=== PATIENT | male | born 1945 | race Caucasian/White ===

== ENCOUNTER 2019-05-18 02:05 | Inpatient (IN) | payer OTHER, MEDICARE ==
[2019-05-18] MEDS ORDERED: NALOXONE 0.4 MG/ML 1 ML VIAL IV PRN (02:25)
[2019-05-18] MEDS ORDERED: ACETAMINOPHEN TAB 325 MG TAB PO PRN (02:25)
--- NOTE | 2019-05-18 02:36 | ED ---
General Adult HPI - General Stated complaint: Cellulitis Time Seen by Provider: 05/18/19 02:10 Source: patient, old records reviewed - History of Present Illness Initial comments: This patient is a 73-year-old man coming here as a transfer from the [facility]. The patient was transferred here as his brother lives nearby and requested transfer to this facility. The patient lives alone in an apartment and had his brother taken to the [facility] today for a number of complaints. He was seen and found to have ulcerations to the bilateral buttocks, with some cellulitis and possible abscess. He was started on treatment at the other facility and as there were no beds she was transferred here. The patient states that he is also having problems with the toenails of both feet as they have not been cut in quite a long period of time. Patient not aware of having fevers. No chest pain or dyspnea. Review of systems reveals that he does get lightheaded with standing. -: unknown Location: buttocks Radiation: non-radiation Consistency: constant Improves with: none Worsens with: none Treatments Prior to Arrival: other (Antibiotic) Review of Systems ROS Statement: Those systems with pertinent positive or pertinent negative responses have been documented in the HPI. ROS Other: All systems not noted in ROS Statement are negative. Constitutional: Reports: weakness (Generalized). Denies: fever Eyes: Denies: vision change ENT: Denies: congestion Respiratory: Denies: cough, dyspnea Cardiovascular: Denies: chest pain, palpitations, edema, syncope Gastrointestinal: Denies: abdominal pain, vomiting, diarrhea Genitourinary: Denies: dysuria Musculoskeletal: Denies: back pain Skin: Reports: as per HPI, lesions Neurological: Denies: headache, weakness, numbness General Exam General appearance: alert, in no apparent distress, cachectic Head exam: Present: atraumatic, normocephalic Eye exam: Present: normal appearance. Absent: scleral icterus, conjunctival injection Neck exam: Present: normal inspection, full ROM Respiratory exam: Present: normal lung sounds bilaterally. Absent: respiratory distress, wheezes, rales, rhonchi, stridor Cardiovascular Exam: Present: regular rate, normal rhythm, normal heart sounds. Absent: systolic murmur, diastolic murmur, rubs, gallop GI/Abdominal exam: Present: soft. Absent: tenderness, guarding, rebound Back exam: Absent: CVA tenderness (R), CVA tenderness (L) Neurological exam: Present: alert. Absent: motor sensory deficit Skin exam: Present: warm, dry, erythema (Patient has erythema and warmth to the bilateral buttocks, somewhat over the trochanter of each hip.) Course Vital Signs 05/18/19 02:25 Temperature 98.1 F Pulse Rate 77 Respiratory 20 Rate Blood Pressure 106/55 O2 Sat by Pulse 93 L Oximetry Medical Decision Making - Medical Decision Making Patient is 73-year-old man with multiple complaints, being in minute to start antibiotics for cellulitis, and then he may be requiring placement to long-term care facility for resolution of his social issues. Shouldn't had been started on Zosyn and vancomycin at the other facility and is be continued pending knees as a results of the cultures there or on seeing progress. Disposition Clinical Impression: Cellulitis and abscess of buttock Disposition: ADMITTED IP TO THIS HOSP Condition: Fair Is patient prescribed a controlled substance at d/c from ED?: No Referrals: None,Stated [Primary Care Provider] - 1-2 days
[2019-05-18] MEDS ORDERED: VANCOMYCIN IV PER PHARMACY 1 EACH MISC MISCELLANE PRN (02:41)
[2019-05-18] MEDS: SODIUM CHLORIDE 0.9% 1,000 ML IV SCH (02:55)
[2019-05-18] MEDS: PIPERACILLIN-TAZOBACTAM 3.375 GM in SODIUM CHLORIDE 0.9% 100 ML IVPB SCH ×3 (02:57→21:03)
[2019-05-18 03:14] LABS: Anisocytosis Slight; Basophils # (A) 0.2 k/uL (0-0.2); Basophils % (A) 1 %; Eosinophils # (A) 0.3 k/uL (0-0.7); Eosinophils % (A) 2 %; HCT 31.4 % (39.0-53.0); HGB 9.8 gm/dL (13.0-17.5); Hypochromasia Moderate; Lymphocytes # (A) 2.2 k/uL (1.0-4.8); Lymphocytes % (A) 19 %; MCH 24.3 pg (25.0-35.0); MCHC 31.1 g/dL (31.0-37.0); Mean Platelet Volume 7.4; Microcytosis Slight; Monocytes # (A) 0.5 k/uL (0-1.0); Monocytes % (A) 5 %; Neutrophils # (A) 8.7 k/uL (1.3-7.7); Neutrophils % (A) 72 %; Platelet Count 360 k/uL (150-450); RBC 4.03 m/uL (4.30-5.90); RDW 16.1 % (11.5-15.5); WBC 12.1 k/uL (3.8-10.6)
[2019-05-18 03:16] LABS: African American GFR (CKD) >90 (>60 ml/min/1.73 sqM); Anion Gap 4 mmol/L; Blood Urea Nitrogen 11 mg/dL (9-20); Carbon Dioxide 24 mmol/L (22-30); Chloride 106 mmol/L (98-107); Glucose 96 mg/dL (74-99); Non-African American GFR(CKD) >90 (>60 ml/min/1.73 sqM); Potassium 4.5 mmol/L (3.5-5.1); Sodium 134 mmol/L (137-145)
[2019-05-18] MEDS ORDERED: VANCOMYCIN 1,250 MG in SODIUM CHLORIDE 0.9% 250 ML IVPB ONE (04:00)
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
[2019-05-18] MEDS: VANCOMYCIN 1,250 MG in SODIUM CHLORIDE 0.9% 250 ML IVPB SCH (14:57)
--- NOTE | 2019-05-18 15:43 | CT ---
EXAMINATION TYPE: CT pelvis w con DATE OF EXAM: 05/18/2019 COMPARISON: Plain film 05/17/2019 from outside institution HISTORY: Bilateral buttocks pain. CT DLP: 403.9 mGycm Automated exposure control for dose reduction was used. TECHNIQUE: Helical acquisition of images from the lung bases through the pelvis have been completed. CONTRAST: Performed without Oral Contrast and with IV Contrast, patient injected with 100ml mL of Isovue 300. FINDINGS: The scan at the level of the gluteal regions is abnormally thickened, there is subcutaneous fat increased attenuation, at the level of the gluteus musculature on the left there is a low-attenu ation focus which is multilocular and extends from the level the skin to the posterior aspect of the proximal left lower extremity measuring at least 14 cm in size by 2.7 x 1.5 cm as greatest 4 cm AP di mension more distally along the proximal femur just deep to the skin. LUNG BASES: No significant abnormality is appreciated. AORTA: No significant abnormality is appreciated. LIVER/GB: Only partially visualized, gallbladder is contracted PANCREAS: Are showing visualized SPLEEN: Not included ADRENALS: Not included. KIDNEYS: Left kidney shows an exophytic cortical cyst measuring 3.2 cm posteriorly, the entire kidney s are not included on exam. Some additional lower pole subcentimeter low dense foci are indeterminate and left kidney REPRODUCTIVE ORGANS: Prostate is enlarged and shows associated calcifications. There is mass effect o n the inferior aspect of the urinary bladder. BOWEL: There are fluid-filled loops of small and large bowel present FREE AIR: No Free Air visible. ASCITES: None visible. PELVIC ADENOPATHY: None visualized. RETROPERITONEAL ADENOPATHY: No Retroperitoneal Adenopathy visible. URINARY BLADDER: Bladder wall thickening may be due to chronic outlet obstruction OSSEOUS STRUCTURES: No significant abnormality is seen. IMPRESSION: SOFT TISSUE ABSCESS, CELLULITIS DESCRIBED. ADDITIONAL FINDINGS ABOVE.
--- NOTE | 2019-05-18 15:53 | HP ---
HISTORY AND PHYSICAL DATE OF SERVICE: 05/18/2019 CHIEF COMPLAINT: Bilateral leg cellulitis and gluteal cellulitis. HISTORY OF PRESENT ILLNESS: This 73-year-old gentleman with a past medical history of multiple medical problems, including history of DJD, history of nicotine dependence, being followed by [facility] in the outpatient setting, apparently presented to [facility]. The patient is living in the [place] area. The patient had his own apartment, but apparently the apartment is in a disordered state at this time, and the patient was transferred from [facility] to [facility] for further evaluation because they do not have any bedside over there. The patient is complaining of bilateral gluteal wounds with some discharge as well as bilateral leg wounds and significant deformities of the nails, also. There is no history of any fever, rigor or chills. No history of headache, loss of consciousness, seizures. PAST MEDICAL HISTORY: DJD, history of nicotine dependence. MEDICATIONS: None. ALLERGIES: NONE. FAMILY HISTORY: History of cancer in the family. SOCIAL HISTORY: History of smoking. REVIEW OF SYSTEMS: ENT: Diminished hearing. Diminished vision. CARDIOVASCULAR SYSTEM: No angina, palpitations. RESPIRATORY SYSTEM: No cough, hemoptysis. GI: No nausea, vomiting. : No dysuria or retention. NERVOUS SYSTEM: As mentioned earlier. ALLERGY/IMMUNOLOGY: No asthma, hayfever. MUSCULOSKELETAL: As mentioned earlier. HEMATOLOGY/ONCOLOGY: No history of anemia. ENDOCRINE: No history of diabetes, hypothyroidism. CONSTITUTIONAL: As mentioned earlier. DERMATOLOGY: Negative. RHEUMATOLOGY: Negative. PSYCHIATRY: As mentioned earlier. PHYSICAL EXAMINATION: Patient alert and oriented x3. Pulse 76, blood pressure 136/64, respiration 18, temperature 97.8, pulse ox 97% on room air. HEENT: Conjunctivae normal. NECK: No jugular venous distention. CARDIOVASCULAR SYSTEM: S1, S2 muffled. RESPIRATORY SYSTEM: Breath sounds diminished at the bases. No rhonchi. No crackles. ABDOMEN: Soft, non-tender. No mass palpable. LEGS: No edema. No swelling. Otherwise, some erythema and bilateral leg cellulitis. Significant deformities in the nails also present. EXAMINATION OF THE GLUTEAL REGION: Bilateral skin cellulitis and minimal ulcerations. Discharge also present. NERVOUS SYSTEM: Higher functions as mentioned earlier. Moves all 4 limbs. No focal motor or sensory deficit. LYMPHATICS: No lymph node palpable in neck, axillae or groin. JOINTS: No active deforming arthropathy. SKIN: As mentioned earlier. LABS: WBC 12.2, hemoglobin 9.8, MCV 78, sodium 134. ASSESSMENT: 1. Bilateral gluteal cellulitis with failure of outpatient treatment. 2. Bilateral leg cellulitis. 3. Mild to moderate protein-calorie malnutrition. 4. Increased white count. 5. Anemia, microcytic, of undetermined etiology; possibly nutritional. 6. Hyponatremia. 7. History of nicotine dependence. 8. History of degenerative joint disease. RECOMMENDATIONS AND DISCUSSION: In this 73-year-old gentleman who presented with multiple complex medical issues, we will monitor the patient closely, continue the current medications, continue with symptomatic treatment. Will initiate broad-spectrum IV antibiotics and add antifungals. Infectious disease evaluation. PT, OT evaluation, possible ECF rehab. Otherwise, resume the home medications. DVT prophylaxis. Proton pump inhibitors. See orders for further details. I would also recommend a social insurance specialist consultation because of the issues with the home situation. The prognosis is guarded. Further recommendations to follow. A copy of this dictation is being forwarded to Dr. Jc, who [facility]. MMODL / IJN: [id number] /
--- NOTE | 2019-05-18 17:53 | P.CON ---
Consult Note - . Consult date: 05/18/19 Assessment/Plan:: This consult was performed per the request of Dr. Tiago Paredes elongated thick deformed nails. This patient is a 73-year-old male here as a transfer from the [facility]. The patient was transferred here as his brother lives nearby and requested transfer to this facility. The patient lives alone in an apartment and has had at his brother take him to the [facility] number of complaints. He was seen and found to have an ulceration to the bilateral buttocks area cellulitis and possible abscess. He was started on treatment at the other facility. The patient also states that he is having problems with the toenails of both feet and they've not been cut in quite a long period of time the patient is not aware of any fevers or chest pains or dyspnea U of systems revealed that he does get lightheaded with standing Review of systems systems with pertinent positive for pertinent negative responses have been documented in the HPI Podiatric examination revealed thick deformed elongated dystrophic nails of both feet been years since some of the nails have been trimmed. There is increased thickness dystrophy discoloration and subungual debris consistent with onychomycosis involving the digits one through 5 bilaterally refill is less than 3 seconds to all digits of both feet and patient had palpable pedal pulses are +1 over 4 with regard to the dorsalis pedis and the posterior tibial arteries of both feet 9 range of motion ankle subtalar midtarsal metatarsal phalangeal joints are free and unrestricted line Babinski and clonus signs were negative this date Impression 1. ulcerations bilateral buttocks alveolitis and possible abscess 2. Onychomycosis with extremely neglected nails 1 through 5 bilaterally Plan 1 I reduce patient's nails manuelly area and the patient climbed to me from en ding the nails down thank you for considering me in the care of your patients
[2019-05-19] MEDS: AMPICILLIN-SULBACTAM 3 GM in SODIUM CHLORIDE 0.9% 100 ML IVPB SCH ×4 (02:10→19:51)
[2019-05-19] MEDS: SODIUM CHLORIDE 0.9% 1,000 ML IV SCH (05:41)
[2019-05-19] MEDS: VANCOMYCIN 1,250 MG in SODIUM CHLORIDE 0.9% 250 ML IVPB SCH ×2 (05:41→20:33)
--- NOTE | 2019-05-19 07:29 | P.CONS ---
History of Present Illness - Reason for Consult Consult date: 05/18/19 gluteal cellulitis Requesting physician: Jovita Ordoñez - Chief Complaint bilateral glteal area pain and swelling x days - History of Present Illness Patient is a 73-year male who has been a transfer from [facility] for management of ulceration to bilateral gluteal area and concern for possible cellulitis patient was evaluated in the ER at their [facility] and there were no beds the patient was transferred to this facility patient ulceration to bilateral gluteal area for a couple of weeks now the patient say it started as he has been scratching the area has been dull aching pain intensity about 5-6 out of 10 and no radiation the patient did have some drainage which is bloodstained and foul-smelling for the patient denies high- grade fever did have some occasional chills on presentation the hospital the patient was afebrile his white count is mildly better at 4.1 patient did have a CT of the pelvis which did show some thickness of the gluteal area with subcutaneous fat increased attenuation and there was abscess about 2.7 x 1.4 cm local wound culture was ordered patient was started on vancomycin and Zosyn admitted to hospital infectious disease was consulted for further recommendation regarding antibiotic therapy. Review of Systems Positive point has been mentioned in HPI rest of the systems are negative Past Medical History History of Any Multi-Drug Resistant Organisms: None Reported Additional Past Surgical History / Comment(s): left wrist surgery, Past Anesthesia/Blood Transfusion Reactions: No Reported Reaction Past Psychological History: No Psychological Hx Reported Smoking Status: Current every day smoker - Past Family History Father Family Medical History: Cancer Mother Family Medical History: Cancer Medications and Allergies Home Medications Medication Instructions Recorded Confirmed Type No Known Home Medications 05/18/19 05/18/19 History Allergies Allergy/AdvReac Type Severity Reaction Status Date / Time No Known Allergies Allergy Verified 05/18/19 08:01 Physical Exam Vitals: Vital Signs Temp Pulse Pulse Resp BP BP Pulse Ox 05/18/19 21:00 98.7 F 71 15 93/52 90 L 05/18/19 11:53 97.8 F 76 19 137/64 97 05/18/19 07:02 98.1 F 79 17 97/42 90 L 05/18/19 04:57 97.6 F 81 16 101/53 90 L 02/06/20 03:55 73 18 93/57 94 L 05/18/19 02:25 98.1 F 77 20 106/55 93 L Intake and Output 05/18/19 05/18/19 05/18/19 06:59 14:59 22:59 Other: Voiding Method Diaper Toilet Toilet Diaper Diaper # Voids 1 3 1 Weight 68.039 kg GENERAL DESCRIPTION: Elderly male lying in bed, no distress. No tachypnea or accessory muscle of respiration use. HEENT: Shows Pallor , no scleral icterus. Oral mucous membrane is dry. NECK: Trachea central, no thyromegaly. LUNGS: Unlabored breathing. Clear to auscultation anteriorly. No wheeze or crackle. HEART: S1, S2, regular rate and rhythm. ABDOMEN: Soft, no tenderness , guarding or rigidity, bilateral gluteal area did have superficial ulcerations the area is indurated and thickened with purulent drainage that was noticed EXTREMITIES: No edema of feet. SKIN: No rash, no masses palpable. NEUROLOGICAL: The patient is awake, alert, oriented x3, mood and affect normal. Results CBC & Chem 7: 05/18/19 02:13 05/18/19 02:13 Labs: Abnormal Lab Results - Last 24 Hours (Table) 05/18/19 05/18/19 Range/Units 02:13 02:13 WBC 12.1 H (3.8-10.6) k/uL RBC 4.03 L (4.30-5.90) m/uL Hgb 9.8 L (13.0-17.5) gm/dL Hct 31.4 L (39.0-53.0) % MCV 78.0 L (80.0-100.0) fL MCH 24.3 L (25.0-35.0) pg RDW 16.1 H (11.5-15.5) % Neutrophils # 8.7 H (1.3-7.7) k/uL Sodium 134 L (137-145) mmol/L Creatinine 0.64 L (0.66-1.25) mg/dL Calcium 8.0 L (8.4-10.2) mg/dL Microbiology - Last 24 Hours (Table) 05/18/19 05:30 Gram Stain - Preliminary Buttock Wound Culture - Preliminary 05/18/19 05:31 Gram Stain - Preliminary Buttock Wound Culture - Preliminary 05/18/19 05:30 Anaerobic Culture - Preliminary Buttock 05/18/19 05:31 Anaerobic Culture - Preliminary Buttock Assessment and Plan Assessment: 1-patient with bilateral gluteal cellulitis with concern for a small abscess on the CT more likely from gram-positive skin karen underlying gram-negative infection not entirely excluded. 2-significant fungal dermatitis of bilateral axillary area (1) Fungal dermatitis Current Visit: Yes Status: Acute Code(s): B36.9 - SUPERFICIAL MYCOSIS, UNSPECIFIED SNOMED Code(s): 06989294 (2) Cellulitis and abscess of buttock Current Visit: Yes Status: Acute Code(s): L02.31 - CUTANEOUS ABSCESS OF BUTTOCK; L03.317 - CELLULITIS OF BUTTOCK SNOMED Code(s): 031764990 Plan: 1-vancomycin pharmacy to dose her with a target trough of 15 while watching her kidney function and Vanco trough closely. 2-discontinue Zosyn and add Unasyn to cover for the gram-negative anaerobes and to decrease risk of nephrotoxicity 3-local care with dry Aquacel silver dressing change daily and as needed. 4-nystatin powder to bilateral axillary area twice a day We will follow on clinical condition and cultures to further adjust medication if needed Thank you for this consultation we will follow the patient along with you Time with Patient: Greater than 30
[2019-05-19] MEDS: FLUCONAZOLE 100 MG TAB PO SCH (08:17)
[2019-05-19] MEDS: NICOTINE 21MG/24HR PATCH TRANSDERM SCH (11:30)
--- NOTE | 2019-05-19 13:48 | CDI ---
Documentation Clarification Form Date: 05/19/2019 01:11:53 PM From: Ayala Wiley RN CCDS Admit Date: 05/18/2019 09:44:00 AM Patient Name: Santhosh Marcos Visit Number: [id number] Discharge Date: ATTENTION: The Clinical Documentation Specialists (CDI) and [facility] Coding Staff appreciate your assistance in clarifying documentation. Please respond to the clarification below the line at the bottom and electronically sign. The CDI & [facility] Coding staff will review the response and follow-up if needed. Please note: Queries are made part of the Legal Health Record. If you have any questions, please contact the author of this message via ITS. Dr. Jovita Ordoñez Thank you for documenting mild to moderate protein calorie malnutrition. However, there needs to be more specificity. History/Risk Factors: 73-year-old male presents to ED via EMS as a transfer from the [facility] with bilateral gluteal wounds with some discharge as well as bilateral leg wounds and significant deformities of the nails. Medical history DJD, History of nicotine dependence Clinical Indicators: Lab findings: Wbc 12.1; Hgb 9.8; Na 134; Cr 0.64; Calcium 8.0 Current BMI 05/19 20.6 Feeding Assessment in Nursing Notes 05/18 Meal Breakfast 100%, Diet tolerated Well, Self-feeding ability independent, Lunch 100%, Dinner 100% , HS Snack 100% No Nutritional consult ordered 05/19 Vital Signs: 05/18 106/55 77 98.1 20 93% ra Treatment: Regular Diet In your professional opinion, can you please clarify the malnutrition? * Mild Protein Calorie Malnutrition * Moderate Protein Calorie Malnutrition * Other, please specify * Unable to determine (Last Revision: July 2017) Mild Protein Calorie Malnutrition MTDD
[2019-05-19] MEDS ORDERED: IV FLUID CONTINUATION 1,000 ML IV ONE (16:10)
[2019-05-19] MEDS ORDERED: ONDANSETRON 4 MG/2 ML VIAL IVP ONE (16:46)
--- NOTE | 2019-05-19 17:06 | P.HPADDEND ---
H&P Addendum H&P Addendum Date: 05/19/19 Its risks of the procedure was described. Patient has deep subcutaneous buttock cellulitis requiring debridement of both Buttocks. Patient agreed FULL CODE STATUS
[2019-05-19] MEDS ORDERED: ONDANSETRON 4 MG/2 ML VIAL ONE (17:18)
[2019-05-19] MEDS ORDERED: LIDOCAINE 1% INJ 10MG/ML (20 ML MDV) ONE (17:18)
[2019-05-19] MEDS ORDERED: SUCCINYLCHOLINE CHLORIDE 100 MG/5 ML SYR IV ONE (17:18)
[2019-05-19] MEDS ORDERED: fentaNYL (PF) 50 MCG/ML 2 ML AMP ONE (17:18)
[2019-05-19] MEDS ORDERED: DEXAMETHASONE SOD PHOS (MDV) 100 MG/10 ML VIAL ONE (17:18)
[2019-05-19] MEDS ORDERED: PROPOFOL 10 MG/ML 20 ML VIAL IV ONE (17:18)
--- NOTE | 2019-05-19 18:07 | PN ---
PROGRESS NOTE DATE OF SERVICE: 05/19/2019 This 73 -year-old gentleman, admitted with bilateral leg ulcers and also gluteal ulcer, is being closely monitored at this time. Surgery is planning debridement today. The patient is on broad-spectrum IV antibiotics. Cultures are showing beta hemolytic streptococci grown from the wound culture. Past medical history reviewed. REVIEW OF SYSTEMS: CARDIOVASCULAR SYSTEM: No angina, palpitations. RESPIRATORY SYSTEM: As mentioned earlier. GI: As mentioned earlier. : No dysuria or retention. NERVOUS SYSTEM: No numbness, weakness. CURRENT MEDICATIONS: Reviewed. They include: 1. Tylenol p.r.n. 2. Unasyn 3 grams IV q.6. 3. Diflucan. 4. Narcan. 5. Habitrol 21 daily. 6. Vancomycin. PHYSICAL EXAMINATION: Patient alert and oriented x3. Pulse 63, blood pressure 152/81, respiration 14, temperature 97.5, pulse ox 98% on room air. HEENT: Conjunctivae normal. Oral mucosa moist. NECK: No jugular venous distention. No carotid bruit. No lymph node enlargement. CARDIOVASCULAR SYSTEM: S1, S2 muffled. RESPIRATORY SYSTEM: Breath sounds diminished at the bases. No rhonchi. No crackles. ABDOMEN: Soft, non-tender. LEGS: Bilateral leg cellulitis and gluteal area cellulitis also present. NERVOUS SYSTEM: No focal deficits. LABS: WBC 12.2, hemoglobin 9.8, sodium 135. ASSESSMENT: 1. Bilateral gluteal cellulitis with streptococci with failure of outpatient treatment with possible gluteal abscess, for incision and drainage. 2. Bilateral leg cellulitis. 3. Mild to moderate protein-calorie malnutrition. 4. Increased white count. 5. Anemia, microcytic, of undetermined etiology. Possibly nutritional. 6. Hyponatremia. 7. History of nicotine dependence. 8. History of degenerative joint disease. RECOMMENDATIONS AND DISCUSSION: In this 73-year-old gentleman who presented with multiple complex medical issues, we will monitor the patient closely, continue the current medications, continue with symptomatic treatment. Otherwise at this time continue the antibiotics. Repeat labs. Follow the cultures. We will continue to monitor. Guarded prognosis because of multiple complex medical issues. Further recommendations to follow. See orders for further details. MMODL / IJN: [id number] /
[2019-05-19] MEDS ORDERED: HYDROmorphone 0.5 MG/0.5 ML SYRINGE IVP PRN (18:08)
[2019-05-19] MEDS ORDERED: HYDROcodone/APAP 5-325MG 1 EACH TAB PO PRN (18:08)
[2019-05-19] MEDS ORDERED: ONDANSETRON 4 MG/2 ML VIAL IVP PRN (18:08)
--- NOTE | 2019-05-19 18:21 | P.OP ---
Date of Procedure: 05/19/19 Description of Procedure: SURGEON: CLARENCE VILLAGRAN MD AUTOMOTIVE PRODUCT ENGINEER: None. PREOPERATIVE DIAGNOSES: 1. Bilateral buttock abscess, complicated 2. Adult self neglect 3. Leukocytosis 4. Abnormal CT pelvis with complex subcutaneous abscess POSTOPERATIVE DIAGNOSES: 1. Bilateral buttock abscess, complicated 2. Adult self neglect 3. Leukocytosis 4. Abnormal CT pelvis with complex subcutaneous abscess 5. [id number] left buttock PROCEDURES PERFORMED: 1. Incision and drainage of complex subcutaneous abcess left buttock 5 x 6 cm 2. Mechanical debridement bilateral buttocks eczematous skin using scrub brush Anesthesia: GETA Estimated Blood Loss (ml): 10 Pathology: Aerobic and anerobic cultures left buttock Condition: stable COMPLICATIONS: None. Operative Findings: 1. Eczematous skin bilateral buttocks with multiple abscess pockets, left buttock drained 2. No active drainage along left femoral abscess per CT scan INDICATIONS: The patient is a 73-year-old male with generalized self neglect and hygiene who presents with complicated left buttock abscesses and abnormal CT of deep left thigh abscess. Benefits and risks of surgical intervention were described including recurrence, pain, need for further surgery. Informed consent was obtained. DESCRIPTION OR PROCEDURE: Patient was brought into the operating room. After general induction, he was positioned in prone position. The buttocks were prepped and draped in a standard sterile fashion with ChloraPrep. Timeout protocol was confirmed with the surgical team regarding the patient's name, procedure to be performed including preoperative medications. DVT prophylaxis was confirmed. Both wounds were measured along the buttocks had eczematous skin debrided mechanically with a scrub brush of 20 x 15 cm both buttocks. At the left buttock two draining points with abscess were found at the superior aspect and inferior aspect of the gluteus. Initial needle aspiration with 18- gauge needle was performed to identify any deep abscess pockets. A tunnel was found of the inferior left buttock explored with forceps of 4 cm. The tunnel was incised and drained using #15 blade. The superior buttock transverse incision of 3 cm was made into the subcutaneous tissue for drainage. No draining abscess pockets were found over the left femur. The skin was cleansed with Hibiclens and water. ABD was applied to the skin. At the end of the procedure, needle, sponge, and instrument count was verified correct by it telecom technician. The patient was transferred into the postanesthesia care unit in stable condition. S
[2019-05-19] MEDS ORDERED: SODIUM CHLORIDE 0.9% 1,000 ML IV ONE (19:09)
--- NOTE | 2019-05-19 22:50 | PN ---
PROGRESS NOTE DATE OF SERVICE: 05/19/2019. REASON FOR FOLLOWUP: Gluteal abscess and cellulitis. INTERVAL HISTORY: The patient is currently afebrile. The patient has been breathing comfortably. The patient denies having any chest pain, shortness of breath or cough. No nausea or vomiting. No abdominal pain. No diarrhea. PHYSICAL EXAMINATION: Blood pressure is 174/90 with a pulse of 82, temperature 96.6. He is 94% on room air. General description is an elderly male lying in bed in no distress. RESPIRATORY SYSTEM: Unlabored breathing. Clear to auscultation anteriorly. HEART: S1, S2. Regular rate and rhythm. ABDOMEN: Soft. No tenderness. LABS: Cultures currently pending. DIAGNOSTIC IMPRESSION AND PLAN: Patient with bilateral gluteal abscess and cellulitis. The patient is status post drainage of the left buttock abscess. The patient is currently covered with Unasyn and vancomycin; to continue while monitoring clinical course closely. MMODL / IJN: [id number] /
[2019-05-20] MEDS: AMPICILLIN-SULBACTAM 3 GM in SODIUM CHLORIDE 0.9% 100 ML IVPB SCH ×4 (02:28→21:11)
[2019-05-20] MEDS: SODIUM CHLORIDE 0.9% 1,000 ML IV SCH (02:31)
[2019-05-20 03:27] LABS: Anisocytosis Slight; Basophils # (A) 0.1 k/uL (0-0.2); Basophils % (A) 1 %; Eosinophils # (A) 0.2 k/uL (0-0.7); Eosinophils % (A) 2 %; HCT 30.5 % (39.0-53.0); HGB 9.6 gm/dL (13.0-17.5); Hypochromasia Slight; Lymphocytes # (A) 1.4 k/uL (1.0-4.8); Lymphocytes % (A) 14 %; MCH 24.4 pg (25.0-35.0); MCHC 31.4 g/dL (31.0-37.0); MCV 77.9 fL (80.0-100.0); Mean Platelet Volume 7.7; Microcytosis Slight; Monocytes # (A) 0.3 k/uL (0-1.0); Monocytes % (A) 3 %; Neutrophils # (A) 8.1 k/uL (1.3-7.7); Neutrophils % (A) 79 %; Platelet Count 288 k/uL (150-450); RBC 3.91 m/uL (4.30-5.90); RDW 16.5 % (11.5-15.5); WBC 10.2 k/uL (3.8-10.6)
[2019-05-20 04:01] LABS: African American GFR (CKD) >90 (>60 ml/min/1.73 sqM); Anion Gap 3 mmol/L; Blood Urea Nitrogen 10 mg/dL (9-20); Calcium 7.6 mg/dL (8.4-10.2); Carbon Dioxide 24 mmol/L (22-30); Chloride 107 mmol/L (98-107); Glucose 80 mg/dL (74-99); Non-African American GFR(CKD) >90 (>60 ml/min/1.73 sqM); Potassium 4.1 mmol/L (3.5-5.1); Sodium 134 mmol/L (137-145)
[2019-05-20] MEDS: VANCOMYCIN 1,250 MG in SODIUM CHLORIDE 0.9% 250 ML IVPB SCH (05:11)
[2019-05-20] MEDS: NICOTINE 21MG/24HR PATCH TRANSDERM SCH (07:12)
[2019-05-20] MEDS: FLUCONAZOLE 100 MG TAB PO SCH (07:16)
--- NOTE | 2019-05-20 11:41 | P.PN ---
Progress Note - Text Progress Note Date: 05/20/19 The patient is resting comfortably in his bed. He underwent incision and drainage of a buttock abscess yesterday from. Per nursing staff his wound is clean. Patient will continue local wound care. He'll follow-up with Dr. Boss next week.
--- NOTE | 2019-05-20 14:23 | PN ---
PROGRESS NOTE DATE OF SERVICE: 05/20/2019 REASON FOR FOLLOWUP: Bilateral gluteal wound and cellulitis. INTERVAL HISTORY: The patient is currently afebrile. Patient has been breathing comfortably. Denies having any chest pain or shortness of breath or cough. No nausea, no vomiting. No abdominal pain. No pain to the gluteal wound area. PHYSICAL EXAMINATION: Blood pressure 92/53 with a pulse of 74, temperature 97.5. He is 93% on room air. General description is an elderly male up in the chair in no distress. RESPIRATORY SYSTEM: Unlabored breathing, clear to auscultation anteriorly. HEART: S1, S2. Regular rate and rhythm. ABDOMEN: Soft, no tenderness. Wound site currently dressed up. LABS: Hemoglobin 9.6, white count 10.2, BUN of 10, creatinine 0.55. Initial culture with beta hemolytic Streptococcus F. OR cultures currently pending. DIAGNOSTIC IMPRESSION AND PLAN: Patient with bilateral gluteal wound and cellulitis. Cultured with beta hemolytic Streptococcus F. The patient is covered with Unasyn. Vancomycin discontinued. Local care to continue as ordered and continue supportive care. MMODL / IJN: [id number] /
[2019-05-20] MEDS: HEPARIN SODIUM,PORCINE 5,000 UNIT/ML 1 ML VIAL SQ SCH ×2 (15:56→21:11)
[2019-05-20] MEDS: FERROUS SULFATE 325 MG TAB PO SCH (15:56)
--- NOTE | 2019-05-20 17:44 | PN ---
PROGRESS NOTE DATE OF SERVICE: 05/20/2019 This 73-year-old gentleman who was admitted with bilateral gluteal cellulitis with beta hemolytic Streptococcus, had failure of outpatient treatment, also. The patient underwent incision and drainage of the complex subcutaneous abscess of the left buttock 5 to 6 cm and mechanical debridement by Dr. Estrada. No chest pain. No palpitations. No fever. PHYSICAL EXAMINATION: On exam, alert and oriented x3. Pulse 68, blood pressure 127/65, respiration 18, temperature 98.3 pulse ox 100% on room air. HEENT: Conjunctivae normal. NECK: No jugular venous distention. CARDIOVASCULAR: S1, S2 muffled. RESPIRATORY: Breath sounds diminished at the bases. No rhonchi. No crackles. ABDOMEN: Soft, nontender. LEGS: No edema, no swelling. NERVOUS SYSTEM: No focal deficits. LABS: WBC 10.2, hemoglobin 9.6, sodium 134. ASSESSMENT: 1. Bilateral gluteal cellulitis with wound with beta-hemolytic streptococci with failure of outpatient treatment, status post incision and drainage of the gluteal abscess. 2. Bilateral leg cellulitis. 3. Mild to moderate protein calorie malnutrition. 4. Increased WBC. 5. Anemia, microcytic undetermined etiology, probably nutritional. 6. Hyponatremia. 7. History of nicotine dependence. 8. History of degenerative joint disease. 9. Gait dysfunction. 10.FULL CODE. RECOMMENDATIONS AND DISCUSSION: In this 73-year-old gentleman who presented with multiple complex medical issues, will monitor the patient closely. Continue the current medications, continue symptomatic treatment. Will obtain the cultures and I would also recommend PT, OT evaluation and possible ECF rehab. Otherwise continue the antibiotics, it is a patient. I would also recommend iron supplementation also. Guarded prognosis. Further recommendations to follow. DVT prophylaxis. MMODL / IJN: [id number] / OSMAR
[2019-05-21] MEDS: SODIUM CHLORIDE 0.9% 1,000 ML IV SCH (03:13)
[2019-05-21] MEDS: AMPICILLIN-SULBACTAM 3 GM in SODIUM CHLORIDE 0.9% 100 ML IVPB SCH ×4 (03:13→21:12)
[2019-05-21] MEDS: NICOTINE 21MG/24HR PATCH TRANSDERM SCH (08:14)
[2019-05-21] MEDS: PANTOPRAZOLE 40 MG TABLET PO SCH (08:14)
[2019-05-21] MEDS: FLUCONAZOLE 100 MG TAB PO SCH (08:14)
[2019-05-21] MEDS: HEPARIN SODIUM,PORCINE 5,000 UNIT/ML 1 ML VIAL SQ SCH ×2 (08:14→21:12)
[2019-05-21 08:28] LABS: Anisocytosis Slight; Basophils # (A) 0.1 k/uL (0-0.2); Basophils % (A) 1 %; Eosinophils # (A) 0.3 k/uL (0-0.7); Eosinophils % (A) 3 %; HCT 33.5 % (39.0-53.0); HGB 10.3 gm/dL (13.0-17.5); Hypochromasia Moderate; Lymphocytes # (A) 1.8 k/uL (1.0-4.8); Lymphocytes % (A) 19 %; MCHC 30.6 g/dL (31.0-37.0); MCV 78.4 fL (80.0-100.0); Mean Platelet Volume 6.8; Monocytes # (A) 0.4 k/uL (0-1.0); Monocytes % (A) 4 %; Neutrophils # (A) 6.7 k/uL (1.3-7.7); Neutrophils % (A) 71 %; Platelet Count 338 k/uL (150-450); RBC 4.28 m/uL (4.30-5.90); RDW 16.2 % (11.5-15.5); WBC 9.4 k/uL (3.8-10.6)
[2019-05-21 08:37] LABS: African American GFR (CKD) >90 (>60 ml/min/1.73 sqM); Anion Gap 7 mmol/L; Blood Urea Nitrogen 10 mg/dL (9-20); Calcium 8.1 mg/dL (8.4-10.2); Carbon Dioxide 22 mmol/L (22-30); Chloride 107 mmol/L (98-107); Glucose 105 mg/dL (74-99); Non-African American GFR(CKD) >90 (>60 ml/min/1.73 sqM); Potassium 4.5 mmol/L (3.5-5.1); Sodium 136 mmol/L (137-145)
--- NOTE | 2019-05-21 10:58 | P.PN ---
Progress Note - Text Progress Note Date: 05/21/19 The patient remained stable. He is currently in his chair. He has no complaints. On exam his vital signs are stable. Abdomen soft. Status post debridement of buttock abscess. Patient be discharged home per medicine.
[2019-05-21] MEDS: FERROUS SULFATE 325 MG TAB PO SCH (13:17)
--- NOTE | 2019-05-21 22:34 | PN ---
PROGRESS NOTE DATE OF SERVICE: 05/21/2019 This 73-year-old gentleman was admitted with bilateral gluteal cellulitis and as well as possible beta-hemolytic Streptococcus and with failure of outpatient treatment has been admitted from [facility] because of lack of beds over there. The patient has IV antibiotics. No chest pain. No palpitations. Debridement was done by Dr. Estrada. EXAM: Alert and oriented x3. Pulse is 62, blood pressure 137/72, respiration 20, temperature 97.2, pulse ox 98% on room air. HEENT: Conjunctivae normal. NECK: No JVD. CARDIOVASCULAR: S1, S2 muffled. LUNGS: Diminished breath sounds at the bases. A few scattered rhonchi and crackles. ABDOMEN: Soft, nontender. Examination of the gluteal region: Ulcer present. NERVOUS SYSTEM: Diffusely weak. LAB STUDIES: WBC 9.2, hemoglobin 10.3, sodium 136. ASSESSMENT: 1. Bilateral gluteal cellulitis with wound abscess with beta-hemolytic streptococci with failure of outpatient treatment, status post incision and drainage of the gluteal abscess. 2. Bilateral leg cellulitis. 3. Mild to moderate protein calorie malnutrition. 4. Gait dysfunction. 5. Increased WBC. 6. Anemia, microcytic undetermined etiology, probably nutritional. 7. Hyponatremia. 8. History of nicotine dependence. 9. History of degenerative joint disease. 10.FULL CODE. RECOMMENDATIONS AND DISCUSSION: In this 73-year-old gentleman who presented with multiple complex medical issues, I would recommend to continue current medications, symptomatic treatment. Otherwise, I recommend continue to monitor, possible ECF rehab. Guarded prognosis. Further recommendations to follow. MMODL / IJN: [id number] /
--- NOTE | 2019-05-22 01:21 | PN ---
PROGRESS NOTE DATE OF SERVICE: 05/21/2019 REASON FOR FOLLOWUP: Left gluteal abscess and cellulitis. INTERVAL HISTORY: The patient is currently afebrile, has been breathing comfortably. The patient denies having any chest pain or shortness of breath or cough. No nausea, vomiting, abdominal pain. No diarrhea. PHYSICAL EXAMINATION: Blood pressure is 137/72 with a pulse of 52, temperature 97.8. He is 99% on room air. General description is an elderly male lying in bed in no distress. Respiratory system: Unlabored breathing, clear to auscultation anteriorly. Heart S1, S2. Regular rate and rhythm. Abdomen soft, no tenderness. Left total wound with surrounding redness has improved. No drainage. LABS: Hemoglobin 7.8, white count 9.4. BUN of 10, creatinine 0.63. DIAGNOSTIC IMPRESSION AND PLAN: Patient with left gluteal abscess status post drainage. The patient at this point to continue local care with Aquacel Silver packing and continue supportive care. MMODL / IJN: [id number] / MTDD
[2019-05-22] MEDS: AMPICILLIN-SULBACTAM 3 GM in SODIUM CHLORIDE 0.9% 100 ML IVPB SCH ×2 (01:33→08:16)
[2019-05-22] MEDS: SODIUM CHLORIDE 0.9% 1,000 ML IV SCH (02:25)
[2019-05-22] MEDS: HEPARIN SODIUM,PORCINE 5,000 UNIT/ML 1 ML VIAL SQ SCH ×2 (08:16→21:10)
[2019-05-22] MEDS: FERROUS SULFATE 325 MG TAB PO SCH (08:16)
[2019-05-22] MEDS: PANTOPRAZOLE 40 MG TABLET PO SCH (08:16)
[2019-05-22] MEDS: FLUCONAZOLE 100 MG TAB PO SCH (08:16)
[2019-05-22] MEDS: NICOTINE 21MG/24HR PATCH TRANSDERM SCH (08:16)
[2019-05-22 08:26] LABS: Anisocytosis Slight; Basophils # (A) 0.1 k/uL (0-0.2); Basophils % (A) 2 %; Eosinophils # (A) 0.4 k/uL (0-0.7); Eosinophils % (A) 4 %; HCT 34.4 % (39.0-53.0); HGB 10.6 gm/dL (13.0-17.5); Hypochromasia Slight; Lymphocytes # (A) 1.8 k/uL (1.0-4.8); Lymphocytes % (A) 19 %; MCH 24.1 pg (25.0-35.0); MCHC 30.7 g/dL (31.0-37.0); MCV 78.4 fL (80.0-100.0); Mean Platelet Volume 7.4; Microcytosis Slight; Monocytes # (A) 0.5 k/uL (0-1.0); Monocytes % (A) 5 %; Neutrophils # (A) 6.7 k/uL (1.3-7.7); Neutrophils % (A) 70 %; Platelet Count 340 k/uL (150-450); RBC 4.38 m/uL (4.30-5.90); RDW 16.7 % (11.5-15.5); WBC 9.6 k/uL (3.8-10.6)
[2019-05-22 08:49] LABS: African American GFR (CKD) >90 (>60 ml/min/1.73 sqM); Anion Gap 9 mmol/L; Blood Urea Nitrogen 12 mg/dL (9-20); Calcium 8.3 mg/dL (8.4-10.2); Carbon Dioxide 20 mmol/L (22-30); Chloride 107 mmol/L (98-107); Glucose 116 mg/dL (74-99); Non-African American GFR(CKD) >90 (>60 ml/min/1.73 sqM); Potassium 4.4 mmol/L (3.5-5.1); Sodium 136 mmol/L (137-145)
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
--- NOTE | 2019-05-22 14:50 | PN ---
PROGRESS NOTE DATE OF SERVICE: 05/22/2019. REASON FOR FOLLOWUP: Left gluteal abscess and cellulitis. INTERVAL HISTORY: The patient is currently afebrile. The patient has been breathing comfortably. Denies having any chest pain or any cough. No nausea or vomiting. No pain to the left gluteal area. PHYSICAL EXAMINATION: Blood pressure is 99/64 with a pulse of 59, temperature 97.7, he is 95% on room air. General description is an elderly male lying in bed in no distress. RESPIRATORY SYSTEM: Unlabored breathing. Clear to auscultation anteriorly. HEART: S1, S2. Regular rate and rhythm. ABDOMEN: Soft. No tenderness. LABS: Hemoglobin 7.6, white count 9.6. Creatinine 0.67. Left buttock culture is with group F Streptococcus and Proteus mirabilis. DIAGNOSTIC IMPRESSION AND PLAN: Patient with left gluteal abscess status post drainage. Culture revealed group F Streptococcus. Antibiotic has been switched to cefazolin 2 grams q.8 hours to continue for another 10 days in outpatient setting, local care with Aquacel Silver dressing. Continue with supportive care. MMODL / IJN: [id number] / OSMAR
[2019-05-22] MEDS: metroNIDAZOLE 500 MG TAB PO SCH ×2 (17:13→21:10)
--- NOTE | 2019-05-22 19:49 | PN ---
PROGRESS NOTE DATE OF SERVICE: 05/22/2019 This 73-year-old gentleman who was admitted with bilateral gluteal cellulitis as well as wound abscess with beta hemolytic streptococci is being closely monitored. The patient has a history of noncompliance, also. PT/OT and Social Work are following the patient closely. Infectious Disease has been consulted, as has Surgery. No chest pain. No palpitations. No fever. PHYSICAL EXAMINATION: Alert and oriented x3. Pulse is 59, blood pressure 99/64, respiration 18, temperature 97.7, pulse ox 94% on room air. HEENT: Conjunctivae normal. NECK: No jugular venous distention. CARDIOVASCULAR SYSTEM: S1, S2 muffled. RESPIRATORY SYSTEM: Breath sounds diminished at the bases. A few rhonchi. No crackles. ABDOMEN: Soft, non-tender. LEGS: No edema. No swelling. NERVOUS SYSTEM: No focal deficit. EXAMINATION OF THE GLUTEAL REGION: Significant cellulitis, status post incision and drainage. LABS: WBC 9.7, hemoglobin 10.6. Sodium 136. ASSESSMENT: 1. Bilateral gluteal cellulitis with wound and abscess with beta-hemolytic streptococci with failure of outpatient treatment, status post incision and drainage of the gluteal abscess. 2. Bilateral leg cellulitis. 3. Mild to moderate protein-calorie malnutrition. 4. Gait dysfunction. 5. Increased white count. 6. Anemia, microcytic, of undetermined etiology, probably nutritional. 7. Hyponatremia. 8. History of nicotine dependence. 9. History of degenerative joint disease. 10.FULL CODE. RECOMMENDATIONS AND DISCUSSION: I recommend to continue current medications, continue with the monitoring, symptomatic treatment. At this time I recommend continuing the broad-spectrum IV antibiotics. Cultures noted. The patient also had anaerobic cultures. Anaerobic bacilli grown from the cultures in addition to be beta hemolytic streptococci. We will continue to monitor. Guarded prognosis. Further recommendations to follow. Repeat labs recommended also. human services manager and socially responsible investment adviser to work with the patient and family; the brother who is taking care of the patient; for discharge disposition as well. Further recommendations to follow. MMODL / IJN: [id number] /
[2019-05-23] MEDS: SODIUM CHLORIDE 0.9% 1,000 ML IV SCH (00:42)
[2019-05-23 04:56] VITALS: BP 96/48; PULSE 66; TEMP 97.9
[2019-05-23] MEDS: FERROUS SULFATE 325 MG TAB PO SCH (08:29)
[2019-05-23] MEDS: FLUCONAZOLE 100 MG TAB PO SCH (08:29)
[2019-05-23] MEDS: PANTOPRAZOLE 40 MG TABLET PO SCH (08:29)
[2019-05-23] MEDS: metroNIDAZOLE 500 MG TAB PO SCH ×2 (08:29→17:25)
[2019-05-23] MEDS: NICOTINE 21MG/24HR PATCH TRANSDERM SCH (08:29)
[2019-05-23] MEDS: HEPARIN SODIUM,PORCINE 5,000 UNIT/ML 1 ML VIAL SQ SCH (08:29)
[2019-05-23 09:31] LABS: Anisocytosis Slight; Basophils # (A) 0.1 k/uL (0-0.2); Basophils % (A) 1 %; Eosinophils # (A) 0.3 k/uL (0-0.7); Eosinophils % (A) 3 %; HCT 33.3 % (39.0-53.0); HGB 9.9 gm/dL (13.0-17.5); Hypochromasia Moderate; Lymphocytes # (A) 1.9 k/uL (1.0-4.8); Lymphocytes % (A) 21 %; MCH 23.6 pg (25.0-35.0); MCHC 29.7 g/dL (31.0-37.0); MCV 79.3 fL (80.0-100.0); Mean Platelet Volume 6.9; Microcytosis Slight; Monocytes # (A) 0.4 k/uL (0-1.0); Monocytes % (A) 4 %; Neutrophils # (A) 6.1 k/uL (1.3-7.7); Neutrophils % (A) 69 %; Platelet Count 325 k/uL (150-450); RDW 16.9 % (11.5-15.5); WBC 8.8 k/uL (3.8-10.6)
[2019-05-23 09:50] LABS: African American GFR (CKD) >90 (>60 ml/min/1.73 sqM); Anion Gap 7 mmol/L; Blood Urea Nitrogen 15 mg/dL (9-20); Calcium 8.1 mg/dL (8.4-10.2); Carbon Dioxide 23 mmol/L (22-30); Chloride 107 mmol/L (98-107); Glucose 111 mg/dL (74-99); Non-African American GFR(CKD) >90 (>60 ml/min/1.73 sqM); Potassium 4.6 mmol/L (3.5-5.1); Sodium 137 mmol/L (137-145)
[2019-05-23 10:23] VITALS: RESP 18
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
--- NOTE | 2019-05-23 14:01 | P.DS ---
Providers Date of admission: 05/18/19 09:44 Expected date of discharge: 05/23/19 Attending physician: Jovita Ordoñez Consults: 05/18/19 02:26 Consult Physician Routine Consulting Provider: Christopher Delvalle Consult Reason/Comments: toenail infection Do you want consulting provider notified?: Yes 05/18/19 02:27 Consult Physician Routine Consulting Provider: Lydia Estrada Consult Reason/Comments: buttock ulcer, possible debridement Do you want consulting provider notified?: Yes 05/18/19 11:38 Consult Physician Routine Consulting Provider: Brad Madden Consult Reason/Comments: Open draining abscess on buttocks and left thigh Do you want consulting provider notified?: Yes Primary care physician: Stated None Hospital Course: Final diagnosis Bilateral gluteal abscess and cellulitis with wounds with beta hemolytic streptococci with failure of outpatient treatment, status post incision and drainage of the gluteal abscess Bilateral leg cellulitis Mild to moderate protein calorie malnutrition Gait dysfunction Increased white count Anemia, microcytic, of undetermined etiology, probably nutritional Hyponatremia History of nicotine dependence History of degenerative joint disease Full code Discharge disposition Patient is being discharged in a stable condition with guarded prognosis to [facility] and will continue with IV antibiotic therapy along with oral antibiotic therapy for the next 10 days. Total time taken is 35 minutes. History of present illness This is a 73-year-old male who was recently admitted with bilateral gluteal cellulitis as well as wounds and abscess with beta hemolytic streptococci and was being closely monitored. PT/OT evaluated the patient recommending subacute rehab upon discharge. Social work following and arranged for [facility] admission. Patient will continue with IV antibiotics in the form of Kefzol every 8 hours for the next 10 days along with oral Flagyl 500 mg 3 times daily for the next 10 days. Patient will need to follow-up with surgery along with infectious disease in the outpatient setting. Patient is to continue daily wound care to the coccyx and sacrum area with Aquacel silver and a 4 x 4 and Kerlix with applying Aquacel Ag to the buttocks along with nystatin powder under bilateral axilla. Currently patient denies any chest pain, shortness of breath, or palpitations. Patient is afebrile. Patient denies any nausea or vomiting and is tolerating diet. On exam vital signs are stable. Temp is 97.9F, pulse is 66, respirations are 16, blood pressure is 96/48, oxygen saturation is 97% on room air. Cardio S1, S2 are muffled. Respiratory system shows diminished breath sounds at the bases with a few scattered rhonchi noted. Abdomen is soft, thin, and nontender. Nervous system shows mild diffuse weakness. Please refer to medication reconciliation sheet for a list of medications. Patient Condition at Discharge: Stable Plan - Discharge Summary Discharge Rx Participant: Yes New Discharge Prescriptions: New Fluconazole [Diflucan] 100 mg PO DAILY tab metroNIDAZOLE [Flagyl] 500 mg PO TID 10 Days #30 tab Nicotine 21Mg/24Hr Patch [Habitrol] 1 patch TRANSDERM DAILY patch Ferrous Sulfate [Iron (65 MG Elemental)] 325 mg PO W/LUNCH tab Cefazolin Sodium/D5w [Cefazolin-D5w 2 G/100 ml] 2 gm IV Q8H 10 Days #30 plast..bag Pantoprazole [Protonix] 40 mg PO AC-BRKFST tablet. Acetaminophen Tab [Tylenol] 650 mg PO Q6HR PRN tab PRN Reason: Mild Pain Or Fever > 100.5 Discharge Medication List Acetaminophen Tab [Tylenol] 650 mg PO Q6HR PRN tab 05/23/19 [Rx] Cefazolin Sodium/D5w [Cefazolin-D5w 2 G/100 ml] 2 gm IV Q8H 10 Days #30 plast..bag 05/23/19 [Rx] Ferrous Sulfate [Iron (65 MG Elemental)] 325 mg PO W/LUNCH tab 05/23/19 [Rx] Fluconazole [Diflucan] 100 mg PO DAILY tab 05/23/19 [Rx] Nicotine 21Mg/24Hr Patch [Habitrol] 1 patch TRANSDERM DAILY patch 05/23/19 [Rx] Pantoprazole [Protonix] 40 mg PO AC-BRKFST tablet. 05/23/19 [Rx] metroNIDAZOLE [Flagyl] 500 mg PO TID 10 Days #30 tab 05/23/19 [Rx] Follow up Appointment(s)/Referral(s): Lydia Estrada MD [STAFF PHYSICIAN] - 06/13/19 None,Stated [Primary Care Provider] - 1-2 days Brad Madden MD [STAFF PHYSICIAN] - 1 Week Ambulatory/Diagnostic Orders: Complete Blood Count w/diff [LAB.AMB] Time Frame: 2 Days, Location: None Selected Comprehensive Metabolic Panel [LAB.AMB] Time Frame: 2 Days, Location: None Selected Patient Instructions/Handouts: How to Stop Smoking (DC), Abscess Incision and Drainage (DC) Activity/Diet/Wound Care/Special Instructions: Patient is going to [facility] To continue with antibiotic therapy per infectious disease Follow up with infectious disease upon discharge Repeat labs in 2-3 days Continue with antibiotics for 10 days opticel AG- packed into buttock wounds DAILY activity as tolerated regular diet recommend repeat CT pelvis or ultrasound of the left hip after completion of antibiotic course. Discharge Disposition: TRANSFER TO SNF/ECF
--- NOTE | 2019-05-23 14:25 | PN ---
PROGRESS NOTE DATE OF SERVICE: 05/23/2019 REASON FOR FOLLOWUP: Gluteal wound and cellulitis. INTERVAL HISTORY: The patient is currently afebrile. Patient has been breathing comfortably. Patient denies having any chest pain. No cough. No nausea, no vomiting, no abdominal pain, no diarrhea. PHYSICAL EXAMINATION: Blood pressure is 96/40 with a pulse of 66, temperature 97.9, he is 97% on room air. General description is an elderly male, lying in bed in no distress. RESPIRATORY SYSTEM: Unlabored breathing, clear to auscultation anteriorly. HEART: S1, S2. Regular rate and rhythm. ABDOMEN: Soft, no tenderness. LABS: Hemoglobin 9.8, white count 8.8, creatinine 0.70. Wound culture, anaerobic gram negative and beta-hemolytic Streptococcus. DIAGNOSTIC IMPRESSION AND PLAN: Patient with left gluteal wound abscess and cellulitis, status post drainage, culture with Streptococcus and anaerobic gram-negative bacilli. Patient to finish therapy with cefazolin 2 g every 8 hours and oral Flagyl 500 mg 3 times a day for 10 days. Local wound care with dry packing of the wound and close outpatient followup. MMODL / IJN: [id number] / OSMAR
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
== END 2019-05-23 18:43 | DRG 580 ==
LOC: EC 02:05 → 6NMEDSUR 02:31 → OBSVTOIN 09:44
PROVIDERS: ADMIT Hospitalist; ATTEND Hospitalist
PROC: 0HD8XZZ Extraction of Buttock Skin, External Approach (ICD-10-PCS; principal; 2019-05-19 11:30)
PROC: 0J990ZZ Drainage of Buttock Subcutaneous Tissue and Fascia, Open Approach (ICD-10-PCS; principal; 2019-05-19 11:30)
PROC: 05HC33Z Insertion of Infusion Device into Left Basilic Vein, Percutaneous Approach (ICD-10-PCS; 2019-05-23 22:15)
DX: L02.31 Cutaneous abscess of buttock (principal); R64 Cachexia; E44.1 Mild protein-calorie malnutrition; L03.116 Cellulitis of left lower limb; L02.416 Cutaneous abscess of left lower limb; L03.115 Cellulitis of right lower limb; E87.1 Hypo-osmolality and hyponatremia; T74.01XA Adult neglect or abandonment, confirmed, initial encounter; L97.929 Non-pressure chronic ulcer of unspecified part of left lower leg with unspecified severity; L98.419 Non-pressure chronic ulcer of buttock with unspecified severity; L03.317 Cellulitis of buttock; B95.4 Other streptococcus as the cause of diseases classified elsewhere; K60.3 Anal fistula; B35.1 Tinea unguium; B36.9 Superficial mycosis, unspecified; R26.9 Unspecified abnormalities of gait and mobility; R32 Unspecified urinary incontinence; D50.9 Iron deficiency anemia, unspecified; H91.90 Unspecified hearing loss, unspecified ear; M19.90 Unspecified osteoarthritis, unspecified site; Z68.20 Body mass index [BMI] 20.0-20.9, adult; F17.200 Nicotine dependence, unspecified, uncomplicated; Z71.6 Tobacco abuse counseling; Z91.19 Patient's noncompliance with other medical treatment and regimen; Z80.9 Family history of malignant neoplasm, unspecified
CPT/HCPCS: 36410; 36415; 72193; 76937; 80048; 80202; 83605; 83735; 85025; 87070; 87075; 87077; 87102; 87186; 87205; 96365; 96368; 99285

== ENCOUNTER → 2019-06-14 | Outpatient (CLI) | payer MEDICARE ==
--- NOTE | 2019-06-14 13:26 | CT ---
EXAMINATION TYPE: CT pelvis w con DATE OF EXAM: 06/14/2019 COMPARISON: CT pelvis May 18, 2019 HISTORY: Follow up buttock abscess CT DLP: 601.9 mGycm Automated exposure control for dose reduction was used. CONTRAST: Performed with oral and with IV Contrast, patient injected with 100 mL of Isovue 300. FINDINGS: Persistent abnormal skin thickening over the posterior inferior gluteal region bilaterally. There is redemonstration of asymmetric mild generalized that replaced atrophy of the left gluteal muscles infe riorly versus right gluteal muscles. There is persistent irregular enhancement extending from skin matta rface axial image 57 then extending deeper laterally and inferiorly towards the proximal left femoral diaphysis. Prior small fluid collection or abscess shows tiny residual irregular fluid collection me asuring 1.8 x 0.7 cm prior study axial image 42 series 4 decreased from prior. Second focal fluid col lection inferiorly laterally is fairly thin-walled and slightly smaller in size from prior measuring 2.8 x 1.6 cm axial image 66 versus 4.0 x 2.6 cm prior study axial image 64. Enlarged prostate gland consistent with BPH redemonstrated. No suspicious small or large bowel dilatation. Enteric contrast does not reach terminal ileum level. Persistent but stable prominent and enlarged bilateral groin lymph nodes. For reference right groin l ymph node measures 2.0 x 1.6 cm current study measures 24 not significantly changed from prior study axial image 40. Stable small fat containing left inguinal hernia. No concerning free fluid collection in the pelvis. Bladder is within normal limits. Mild/moderate carly cified plaque of the aorta extends into branch vessels. Spine is straightened on sagittal images. Mod erate narrowing and spurring of both hip joints redemonstrated. IMPRESSION: Posterior left deep gluteal fluid collection or abscesses show improvement but not comple te resolution from prior CT. No new abscesses are seen. Persistent prominent and abnormal groin adeno james noted bilaterally.
== END | disposition home or self-care (01) ==
LOC: RADCTMAIN 10:07
PROVIDERS: ATTEND Surgery Plastic and Reconstructive Surgery
DX: R59.9 Enlarged lymph nodes, unspecified (principal)
CPT/HCPCS: 72193; Q9967

== ENCOUNTER → 2019-08-04 | Day surgery (SDC) | payer MEDICARE, OTHER ==
[~2019-08-04] MED LIST: LIDOCAINE 1% INJ 10MG/ML (20 ML MDV) SQ ONE
[2019-08-04 12:32] VITALS: RESP 18; TEMP 98
[2019-08-04 15:58] VITALS: BP 149/67; PULSE 56
--- NOTE | 2019-08-09 09:57 | IR ---
PICC LINE PLACEMENT: HISTORY: Infection requiring long-term antibiotic therapy PROCEDURE: Ultrasound and fluoroscopic guidance of PICC line placement. COMPLICATIONS: None ANESTHESIA: 1. 1% Lidocaine locally. FINDINGS/TECHNIQUE: The procedure was explained to the patient. The risks, complications, benefits and alternatives were discussed and any questions were answered. Informed consent was obtained. The patient was placed supine on the fluoroscopic table and prepped and draped in the usual sterile fash ion. Utilizing a 21 gauge needle and sonographic and fluoroscopic guidance, access in the left basi lic vein was achieved and there is placement of a 0.018 guidewire. The vein is patent. A 4-F sheath was placed over the guidewire. The guidewire and dilator were removed and a 4-F. PICC line was plac ed through the sheath with the tip at the level of the SVC. The sheath was removed, the catheter was flushed and sutured into position. The patient was stable throughout the procedure and remained sta ble upon discharge from the Department of Radiology. The vein puncture was patent under ultrasound. A huntley scale image was obtained to document patency of the vein punctured. All elements of the maximal barrier technique were utilized. FLUOROSCOPY TIME: 0.2 minutes and one image submitted IMPRESSION: Successful PICC line placement under ultrasound and fluoroscopic guidance.
== END ==
LOC: CATHCVL 12:09
PROVIDERS: ATTEND Radiology Diagnostic Radiology
DX: L02.31 Cutaneous abscess of buttock (principal); L03.116 Cellulitis of left lower limb; L03.317 Cellulitis of buttock; B96.1 Klebsiella pneumoniae [K. pneumoniae] as the cause of diseases classified elsewhere; E87.1 Hypo-osmolality and hyponatremia; E44.0 Moderate protein-calorie malnutrition
CPT/HCPCS: 36573; C1751; C1769; J2001

== ENCOUNTER → 2020-06-07 | Outpatient (CLI) | payer OTHER, MEDICARE ==
--- NOTE | 2020-06-10 07:29 | PE ---
EXAMINATION TYPE: PET CT fusion skull to thigh DATE OF EXAM: 06/07/2020 COMPARISON: Outside chest x-ray May 17, 2019. CT pelvis June 14, 2019 HISTORY: Abnormal CT, solitary pulmonary nodule TECHNIQUE: Following the intravenous administration of 10.27 mCi of F-18 FDG, whole body images are performed from the skull base to the midthigh. Images are reviewed on the computer in the coronal, a xial, and sagittal planes. Reconstructed rotating images are created on independent workstation and reviewed on the computer. A localization and attenuation correction CT is performed in conjunction with the PET scan. Blood glucose level equals 94. SCAN: Initial Scan FINDINGS: SKULL BASE AND NECK: No suspicious hypermetabolic uptake. CHEST, MEDIASTINUM, AND HILAR REGION: Moderate to advanced underlying emphysematous change greatest i n the upper lungs. Areas of increased groundglass opacity with mild hypermetabolic uptake bilaterally favor infectious or inflammatory etiology. Slightly more focal nodule or more likely nodular consoli dation at 1.5 cm axial image 90 in the left lung base shows no suspicious increased hypermetabolic up take. There is increased hypermetabolic uptake corresponding to ill-defined fluid and fat stranding a nd subcutaneous air in the left axilla near axial image 62 presumed related to recent surgery at this level. Correlate clinically. No additional areas of abnormal hypermetabolic uptake noted. ABDOMEN AND PELVIS: Normal excretion is seen. No adrenal masses. Posterior gluteal region shows skin thickening with posterior superficial fat stranding that has mild abnormal hypermetabolic uptake, res idual infectious process at this level is suspected. Some prominent bilateral groin lymph nodes with mild hypermetabolic uptake, largest left groin axial image 193 measures 2.0 x 1.5 cm, max SUV is 4.09. This lymph nodes stable in size from June 14, 2019 CT OSSEOUS STRUCTURES: No suspicious hypermetabolic uptake. OTHER CT: At least moderate coronary artery calcification. Bilateral gynecomastia. Prominent central pulmonary arteries. Ascending aorta measures up to 3.5 cm in diameter. Liver is low dense consistent with diffuse fatty infiltration. Posterior exophytic 3.9 cm thin-walled cyst in the left kidney. Enlarged prostate consistent with BPH. Small to moderate-sized fat-containi ng left inguinal hernia. Exaggerated cervical kyphosis. Mild to moderate calcified plaque of distal abdominal aorta. IMPRESSION: No suspicious hypermetabolic pulmonary nodule or mass. Stable enlarged groin lymph nodes presumed reactive.
== END | disposition home or self-care (01) ==
LOC: RADPETMAIN 07:33
PROVIDERS: ATTEND Family Medicine
DX: R91.1 Solitary pulmonary nodule (principal); R59.0 Localized enlarged lymph nodes
CPT/HCPCS: 78815; A9552

== ENCOUNTER 2021-03-15 15:55 | Emergency (ER) | payer MEDICARE, OTHER ==
[2021-03-15 16:58] LABS: Anisocytosis Slight; Basophils # (A) 0.1 k/uL (0-0.2); Basophils % (A) 0 %; Eosinophils # (A) 0.1 k/uL (0-0.7); Eosinophils % (A) 1 %; Hypochromasia Marked; Lymphocytes # (A) 1.3 k/uL (1.0-4.8); Lymphocytes % (A) 10 %; MCH 18.7 pg (25.0-35.0); MCHC 28.9 g/dL (31.0-37.0); MCV 64.8 fL (80.0-100.0); Mean Platelet Volume 6.7; Microcytosis Marked; Monocytes # (A) 0.5 k/uL (0-1.0); Monocytes % (A) 4 %; Neutrophils # (A) 10.8 k/uL (1.3-7.7); Neutrophils % (A) 84 %; Platelet Count 414 k/uL (150-450); Poikilocytosis Slight; RBC 3.71 m/uL (4.30-5.90); RDW 16.6 % (11.5-15.5); WBC 12.8 k/uL (3.8-10.6)
[2021-03-15 17:02] LABS: Partial Thromboplastin Time 23.3 sec (22.0-30.0); Prothrombin Time 10.6 sec (9.0-12.0)
[2021-03-15 17:05] LABS: HGB 6.9 gm/dL (13.0-17.5)
[2021-03-15 17:14] LABS: ALT 9 U/L (4-49); AST 17 U/L (17-59); African American GFR (CKD) >90 (>60 ml/min/1.73 sqM); Albumin 3.2 g/dL (3.5-5.0); Alkaline Phosphatase 94 U/L (38-126); Anion Gap 11 mmol/L; Blood Urea Nitrogen 20 mg/dL (9-20); Calcium 8.3 mg/dL (8.4-10.2); Carbon Dioxide 22 mmol/L (22-30); Chloride 102 mmol/L (98-107); Glucose 170 mg/dL (74-99); Magnesium 2.1 mg/dL (1.6-2.3); Non-African American GFR(CKD) 90 (>60 ml/min/1.73 sqM); Potassium 4.2 mmol/L (3.5-5.1); Sodium 135 mmol/L (137-145); Total Bilirubin 0.2 mg/dL (0.2-1.3); Total Protein 6.5 g/dL (6.3-8.2)
--- NOTE | 2021-03-15 18:22 | ED ---
General Adult HPI - General Chief complaint: Recheck/Abnormal Lab/Rx Stated complaint: low hemoglobin Source: patient, EMS Mode of arrival: EMS Limitations: no limitations - History of Present Illness Initial comments: 75-year-old male with past history of chronic anemia, wounds on his buttocks who presents to the emergency department from [facility]. Patient had laboratory studi es drawn and he was told that his hemoglobin was 6.2. Patient denies any black or bloody stools. He is on Elqiuis for A. fib. He has chronic anemia and normally has a hemoglobin in the sevens. He has received a previous blood transfusion however this was some time ago. Patient denies any symptoms. Denies any weakness or shortness of breath. No chest pain or abdominal pain. He transferred to our facility for blood transfusion. No fevers. No other alleviating, precipitating or modifying factors - Related Data Home Medications Medication Instructions Recorded Confirmed Apixaban [Eliquis] 5 mg PO BID@0800,1700 03/15/21 03/15/21 Ascorbic Acid [Vitamin C] 500 mg PO DAILY@0800 03/15/21 03/15/21 Bumetanide 1 mg PO DAILY@0800 03/15/21 03/15/21 Chlorhexidine Gluconate [Hibiclens] 1 applic TOPICAL DAILY 03/15/21 03/15/21 Cholecalciferol [Vitamin D3 (25 25 mcg PO DAILY@0800 03/15/21 03/15/21 Mcg = 1000 Iu)] Clotrimazole Cream [Lotrimin Cream] 1 applic TOPICAL BID@0800,2100 03/15/21 03/15/21 Dakins 0.25% Kasey 1 applic TOPICAL DAILY 03/15/21 03/15/21 Levothyroxine Sodium [Synthroid] 50 mcg PO DAILY@0700 03/15/21 03/15/21 Liquacel 30 ml PO BID 03/15/21 03/15/21 Magnesium Hydroxide [Milk of 2,400 mg PO DAILY PRN 03/15/21 03/15/21 Magnesia] Melatonin 3 mg PO HS@2100 03/15/21 03/15/21 Metoprolol Tartrate [Lopressor] 12.5 mg PO BID@0800,1700 03/15/21 03/15/21 Midodrine [ProAmatine] 5 mg PO DAILY PRN 03/15/21 03/15/21 Na Phos,M-B/Na Phos,Di-Ba [Fleet 133 ml RECTAL DAILY PRN 03/15/21 03/15/21 Adult] Nystatin 100,000 Unit/gm Powd 1 applic TOPICAL DAILY 03/15/21 03/15/21 [Mycostatin Powder] Pantoprazole [Protonix] 40 mg PO DAILY@0800 03/15/21 03/15/21 Triamcinolone 0.5% Cream [Kenalog 1 applic TOPICAL BID@0800,2100 03/15/21 03/15/21 0.5% Cream] bisacodyL [Dulcolax] 10 mg RECTAL DAILY PRN 03/15/21 03/15/21 diphenhydrAMINE HCL [Benadryl] 25 mg PO DAILY PRN 03/15/21 03/15/21 guaiFENesin [Mucinex] 600 mg PO BID@0800,1700 03/15/21 03/15/21 hydrOXYzine HCL [Atarax] 25 mg PO Q6H PRN 03/15/21 03/15/21 Previous Rx's Medication Instructions Recorded Acetaminophen Tab [Tylenol] 650 mg PO Q6HR PRN tab 05/23/19 Allergies Allergy/AdvReac Type Severity Reaction Status Date / Time No Known Allergies Allergy Verified 03/15/21 17:15 Review of Systems ROS Statement: Those systems with pertinent positive or pertinent negative responses have been documented in the HPI. ROS Other: All systems not noted in ROS Statement are negative. Past Medical History Past Medical History: No Reported History History of Any Multi-Drug Resistant Organisms: None Reported Additional Past Surgical History / Comment(s): left wrist surgery, Past Anesthesia/Blood Transfusion Reactions: No Reported Reaction Past Psychological History: No Psychological Hx Reported Smoking Status: Current some day smoker Past Alcohol Use History: None Reported Past Drug Use History: None Reported - Past Family History Father Family Medical History: Cancer Mother Family Medical History: Cancer General Exam Limitations: no limitations Course Vital Signs 03/15/21 03/15/21 03/15/21 16:12 16:45 18:37 Temperature 98 F 97.2 F L Pulse Rate 71 62 Respiratory 18 16 Rate Blood Pressure 112/69 90/50 O2 Sat by Pulse 97 99 Oximetry 03/15/21 03/15/21 18:47 19:17 Temperature 97.4 F L 97.5 F L Pulse Rate 68 64 Respiratory 18 18 Rate Blood Pressure 128/72 132/72 O2 Sat by Pulse 98 Oximetry EKG Findings - EKG Comments: EKG Findings:: EKG demonstrates normal sinus rhythm with a ventricular rate of 63. FL interval 198. QRS 86. QTC of 456. No acute ST segment elevations or depressions concerning for ischemic changes or infarction Medical Decision Making - Medical Decision Making Upon arrival patient is placed into room 10. There was no physical exam was performed. Patient's laboratory studies are obtained and his hemoglobin is 69. Patient has a normal baseline hemoglobin between 7-8. Patient is typed and crossmatched and transfused 1 unit. He will be discharged back to his facility needs to have repeat laboratory studies performed a couple of days to ensure improvement. Patient is adamantly wanting to go home at this time. He is to return for any new or worsening symptoms - Lab Data Result diagrams: 03/15/21 16:45 03/15/21 16:45 Lab Results 03/15/21 03/15/21 03/15/21 Range/Units 16:40 16:45 16:45 WBC 12.8 H (3.8-10.6) k/uL RBC 3.71 L (4.30-5.90) m/uL Hgb 6.9 L* (13.0-17.5) gm/dL Hct 24.0 L (39.0-53.0) % MCV 64.8 L (80.0-100.0) fL MCH 18.7 L (25.0-35.0) pg MCHC 28.9 L (31.0-37.0) g/dL RDW 16.6 H (11.5-15.5) % Plt Count 414 (150-450) k/uL MPV 6.7 Neutrophils % 84 % Lymphocytes % 10 % Monocytes % 4 % Eosinophils % 1 % Basophils % 0 % Neutrophils # 10.8 H (1.3-7.7) k/uL Lymphocytes # 1.3 (1.0-4.8) k/uL Monocytes # 0.5 (0-1.0) k/uL Eosinophils # 0.1 (0-0.7) k/uL Basophils # 0.1 (0-0.2) k/uL Hypochromasia Marked Poikilocytosis Slight Anisocytosis Slight Microcytosis Marked PT 10.6 (9.0-12.0) sec INR 1.0 (<1.2) APTT 23.3 (22.0-30.0) sec Sodium (137-145) mmol/L Potassium (3.5-5.1) mmol/L Chloride (98-107) mmol/L Carbon Dioxide (22-30) mmol/L Anion Gap mmol/L BUN (9-20) mg/dL Creatinine (0.66-1.25) mg/dL Est GFR (CKD-EPI)AfAm (>60 ml/min/1.73 sqM) Est GFR (CKD-EPI)NonAf (>60 ml/min/1.73 sqM) Glucose (74-99) mg/dL Lactic Ac Sepsis Rflx Plasma Lactic Acid Isidro (0.7-2.0) mmol/L Calcium (8.4-10.2) mg/dL Magnesium (1.6-2.3) mg/dL Total Bilirubin (0.2-1.3) mg/dL AST (17-59) U/L ALT (4-49) U/L Alkaline Phosphatase (38-126) U/L Troponin I (0.000-0.034) ng/mL Total Protein (6.3-8.2) g/dL Albumin (3.5-5.0) g/dL Blood Type Blood Type Confirm A Positive Blood Type Recheck Bld Type Recheck Status Antibody Screen Crossmatch Spec Expiration Date 03/15/21 03/15/21 03/15/21 Range/Units 16:45 16:45 16:45 WBC (3.8-10.6) k/uL RBC (4.30-5.90) m/uL Hgb (13.0-17.5) gm/dL Hct (39.0-53.0) % MCV (80.0-100.0) fL MCH (25.0-35.0) pg MCHC (31.0-37.0) g/dL RDW (11.5-15.5) % Plt Count (150-450) k/uL MPV Neutrophils % % Lymphocytes % % Monocytes % % Eosinophils % % Basophils % % Neutrophils # (1.3-7.7) k/uL Lymphocytes # (1.0-4.8) k/uL Monocytes # (0-1.0) k/uL Eosinophils # (0-0.7) k/uL Basophils # (0-0.2) k/uL Hypochromasia Poikilocytosis Anisocytosis Microcytosis PT (9.0-12.0) sec INR (<1.2) APTT (22.0-30.0) sec Sodium 135 L (137-145) mmol/L Potassium 4.2 (3.5-5.1) mmol/L Chloride 102 (98-107) mmol/L Carbon Dioxide 22 (22-30) mmol/L Anion Gap 11 mmol/L BUN 20 (9-20) mg/dL Creatinine 0.78 (0.66-1.25) mg/dL Est GFR (CKD-EPI)AfAm >90 (>60 ml/min/1.73 sqM) Est GFR (CKD-EPI)NonAf 90 (>60 ml/min/1.73 sqM) Glucose 170 H (74-99) mg/dL Lactic Ac Sepsis Rflx Plasma Lactic Acid Isidro 2.3 H* (0.7-2.0) mmol/L Calcium 8.3 L (8.4-10.2) mg/dL Magnesium 2.1 (1.6-2.3) mg/dL Total Bilirubin 0.2 (0.2-1.3) mg/dL AST 17 (17-59) U/L ALT 9 (4-49) U/L Alkaline Phosphatase 94 (38-126) U/L Troponin I <0.012 (0.000-0.034) ng/mL Total Protein 6.5 (6.3-8.2) g/dL Albumin 3.2 L (3.5-5.0) g/dL Blood Type Blood Type Confirm Blood Type Recheck Bld Type Recheck Status Antibody Screen Crossmatch Spec Expiration Date 03/15/21 03/15/21 Range/Units 17:12 17:19 WBC (3.8-10.6) k/uL RBC (4.30-5.90) m/uL Hgb (13.0-17.5) gm/dL Hct (39.0-53.0) % MCV (80.0-100.0) fL MCH (25.0-35.0) pg MCHC (31.0-37.0) g/dL RDW (11.5-15.5) % Plt Count (150-450) k/uL MPV Neutrophils % % Lymphocytes % % Monocytes % % Eosinophils % % Basophils % % Neutrophils # (1.3-7.7) k/uL Lymphocytes # (1.0-4.8) k/uL Monocytes # (0-1.0) k/uL Eosinophils # (0-0.7) k/uL Basophils # (0-0.2) k/uL Hypochromasia Poikilocytosis Anisocytosis Microcytosis PT (9.0-12.0) sec INR (<1.2) APTT (22.0-30.0) sec Sodium (137-145) mmol/L Potassium (3.5-5.1) mmol/L Chloride (98-107) mmol/L Carbon Dioxide (22-30) mmol/L Anion Gap mmol/L BUN (9-20) mg/dL Creatinine (0.66-1.25) mg/dL Est GFR (CKD-EPI)AfAm (>60 ml/min/1.73 sqM) Est GFR (CKD-EPI)NonAf (>60 ml/min/1.73 sqM) Glucose (74-99) mg/dL Lactic Ac Sepsis Rflx Y Plasma Lactic Acid Isidro (0.7-2.0) mmol/L Calcium (8.4-10.2) mg/dL Magnesium (1.6-2.3) mg/dL Total Bilirubin (0.2-1.3) mg/dL AST (17-59) U/L ALT (4-49) U/L Alkaline Phosphatase (38-126) U/L Troponin I (0.000-0.034) ng/mL Total Protein (6.3-8.2) g/dL Albumin (3.5-5.0) g/dL Blood Type A Positive Blood Type Confirm Blood Type Recheck No Previous Record Bld Type Recheck Status CABO Indicated Antibody Screen NEGATIVE Crossmatch See Detail Spec Expiration Date 03/18/20212311 Disposition Clinical Impression: Anemia, Blood transfusion during current hospitalisation Disposition: HOME SELF-CARE Condition: Stable Instructions (If sedation given, give patient instructions): Anemia (ED), Blood Transfusion (DC) Additional Instructions: Your labs must be rechecked in a couple of days to ensure that your hemoglobin has improved. Return to the emergency room for any new or worsening symptoms Is patient prescribed a controlled substance at d/c from ED?: No Referrals: Jeffery Madrigal MD [Primary Care Provider] - 1-2 days Time of Disposition: 18:22
[2021-03-15] MEDS ORDERED: ALTEPLASE 2 MG VIAL (CATHFLO) IV STA (19:18)
[2021-03-15 19:28] VITALS: RESP 18
[2021-03-16 00:07] VITALS: BP 113/62; PULSE 71; TEMP 97.8
== END 2021-03-15 23:25 | disposition home or self-care (01) ==
LOC: EEVIPCON 15:55 → EC 15:55
DX: D64.9 Anemia, unspecified (principal); F17.200 Nicotine dependence, unspecified, uncomplicated; Z79.01 Long term (current) use of anticoagulants
CPT/HCPCS: 99284; 96374; 36430; 36415; 86900; 86901; 80053; 83605; 83735; 84484; 85025; 85610; 85730; 86850; 86920; P9016; J2997

== ENCOUNTER 2021-05-21 08:39 | Emergency (ER) | payer MEDICARE ==
[2021-05-21 08:46] VITALS: RESP 18
[2021-05-21 09:21] LABS: Anisocytosis Slight; Basophils # (A) 0.1 k/uL (0-0.2); Basophils % (A) 1 %; Eosinophils # (A) 0.2 k/uL (0-0.7); Eosinophils % (A) 2 %; HCT 28.4 % (39.0-53.0); HGB 7.9 gm/dL (13.0-17.5); Hypochromasia Marked; Lymphocytes # (A) 1.8 k/uL (1.0-4.8); Lymphocytes % (A) 17 %; MCH 18.6 pg (25.0-35.0); MCHC 27.9 g/dL (31.0-37.0); MCV 66.6 fL (80.0-100.0); Mean Platelet Volume 7.2; Microcytosis Marked; Monocytes # (A) 0.6 k/uL (0-1.0); Monocytes % (A) 6 %; Neutrophils # (A) 7.9 k/uL (1.3-7.7); Neutrophils % (A) 74 %; Platelet Count 316 k/uL (150-450); RBC 4.27 m/uL (4.30-5.90); RDW 16.8 % (11.5-15.5); WBC 10.7 k/uL (3.8-10.6)
[2021-05-21 09:28] LABS: Partial Thromboplastin Time 25.8 sec (22.0-30.0); Prothrombin Time 10.6 sec (9.0-12.0)
--- NOTE | 2021-05-21 09:30 | ED ---
General Adult HPI - General Chief complaint: Recheck/Abnormal Lab/Rx Stated complaint: abd labs Time Seen by Provider: 05/21/21 08:44 Source: patient, EMS, RN notes reviewed Mode of arrival: EMS Limitations: no limitations - History of Present Illness Initial comments: 75[facility] chief complaint of possible low hemoglobin. Patient has chronic anemia and which he normally has hemoglobin is in the 7s. Patient was sent over today with hemoglobin 6.9 per [facility]. Patient states he has no complaints states that she feels very good today denies any chest pain shortness breath headache dizziness no abdominal discomfort no black tarry stools patient denies any hematemesis or coffee-ground emesis patient offers no other complaints. - Related Data Home Medications Medication Instructions Recorded Confirmed Apixaban [Eliquis] 5 mg PO BID@0800,1700 03/15/21 03/15/21 Ascorbic Acid [Vitamin C] 500 mg PO DAILY@0800 03/15/21 03/15/21 Bumetanide 1 mg PO DAILY@0800 03/15/21 03/15/21 Chlorhexidine Gluconate [Hibiclens] 1 applic TOPICAL DAILY 03/15/21 03/15/21 Cholecalciferol [Vitamin D3 (25 25 mcg PO DAILY@0800 03/15/21 03/15/21 Mcg = 1000 Iu)] Clotrimazole Cream [Lotrimin Cream] 1 applic TOPICAL BID@0800,2100 03/15/21 03/15/21 Dakins 0.25% Kasey 1 applic TOPICAL DAILY 03/15/21 03/15/21 Levothyroxine Sodium [Synthroid] 50 mcg PO DAILY@0700 03/15/21 03/15/21 Liquacel 30 ml PO BID 03/15/21 03/15/21 Magnesium Hydroxide [Milk of 2,400 mg PO DAILY PRN 03/15/21 03/15/21 Magnesia] Melatonin 3 mg PO HS@2100 03/15/21 03/15/21 Metoprolol Tartrate [Lopressor] 12.5 mg PO BID@0800,1700 03/15/21 03/15/21 Midodrine [ProAmatine] 5 mg PO DAILY PRN 03/15/21 03/15/21 Na Phos,M-B/Na Phos,Di-Ba [Fleet 133 ml RECTAL DAILY PRN 03/15/21 03/15/21 Adult] Nystatin 100,000 Unit/gm Powd 1 applic TOPICAL DAILY 03/15/21 03/15/21 [Mycostatin Powder] Pantoprazole [Protonix] 40 mg PO DAILY@0800 03/15/21 03/15/21 Triamcinolone 0.5% Cream [Kenalog 1 applic TOPICAL BID@0800,2100 03/15/21 03/15/21 0.5% Cream] bisacodyL [Dulcolax] 10 mg RECTAL DAILY PRN 03/15/21 03/15/21 diphenhydrAMINE HCL [Benadryl] 25 mg PO DAILY PRN 03/15/21 03/15/21 guaiFENesin [Mucinex] 600 mg PO BID@0800,1700 03/15/21 03/15/21 hydrOXYzine HCL [Atarax] 25 mg PO Q6H PRN 03/15/21 03/15/21 Previous Rx's Medication Instructions Recorded Acetaminophen Tab [Tylenol] 650 mg PO Q6HR PRN tab 05/23/19 Allergies Allergy/AdvReac Type Severity Reaction Status Date / Time No Known Allergies Allergy Verified 05/21/21 08:46 Review of Systems ROS Statement: Those systems with pertinent positive or pertinent negative responses have been documented in the HPI. ROS Other: All systems not noted in ROS Statement are negative. Past Medical History Past Medical History: No Reported History Additional Past Medical History / Comment(s): o2 dependent 2L. History of Any Multi-Drug Resistant Organisms: None Reported Additional Past Surgical History / Comment(s): left wrist surgery, Past Anesthesia/Blood Transfusion Reactions: No Reported Reaction Past Psychological History: No Psychological Hx Reported Smoking Status: Former smoker Past Alcohol Use History: None Reported Past Drug Use History: None Reported - Past Family History Father Family Medical History: Cancer Mother Family Medical History: Cancer General Exam Limitations: no limitations General appearance: alert, in no apparent distress Head exam: Present: atraumatic, normocephalic, normal inspection Respiratory exam: Present: normal lung sounds bilaterally. Absent: respiratory distress, wheezes, rales, rhonchi, stridor Cardiovascular Exam: Present: regular rate, normal rhythm, normal heart sounds. Absent: systolic murmur, diastolic murmur, rubs, gallop, clicks GI/Abdominal exam: Present: soft, normal bowel sounds. Absent: distended, tenderness, guarding, rebound, rigid Course Vital Signs 05/21/21 08:39 Temperature 97.5 F L Pulse Rate 76 Respiratory 18 Rate Blood Pressure 133/76 O2 Sat by Pulse 98 Oximetry Medical Decision Making - Medical Decision Making Patient's hemoglobin is 7.9. Patient's is stable be discharged in stable condition back to nurse known. - Lab Data Result diagrams: 05/21/21 08:56 Lab Results 05/21/21 Range/Units 08:56 WBC 10.7 H (3.8-10.6) k/uL RBC 4.27 L (4.30-5.90) m/uL Hgb 7.9 L (13.0-17.5) gm/dL Hct 28.4 L (39.0-53.0) % MCV 66.6 L (80.0-100.0) fL MCH 18.6 L (25.0-35.0) pg MCHC 27.9 L (31.0-37.0) g/dL RDW 16.8 H (11.5-15.5) % Plt Count 316 (150-450) k/uL MPV 7.2 Neutrophils % 74 % Lymphocytes % 17 % Monocytes % 6 % Eosinophils % 2 % Basophils % 1 % Neutrophils # 7.9 H (1.3-7.7) k/uL Lymphocytes # 1.8 (1.0-4.8) k/uL Monocytes # 0.6 (0-1.0) k/uL Eosinophils # 0.2 (0-0.7) k/uL Basophils # 0.1 (0-0.2) k/uL Hypochromasia Marked Anisocytosis Slight Microcytosis Marked Disposition Clinical Impression: Anemia Disposition: HOME SELF-CARE Condition: Stable Instructions (If sedation given, give patient instructions): Anemia (ED) Additional Instructions: Please return to the Emergency Department if symptoms worsen or any other concerns. Is patient prescribed a controlled substance at d/c from ED?: No Referrals: Jeffery Madrigal MD [Primary Care Provider] - 1-2 days Time of Disposition: 09:30
[2021-05-21 09:41] LABS: ALT 11 U/L (4-49); AST 18 U/L (17-59); African American GFR (CKD) >90 (>60 ml/min/1.73 sqM); Albumin 3.2 g/dL (3.5-5.0); Alkaline Phosphatase 79 U/L (38-126); Anion Gap 9 mmol/L; Blood Urea Nitrogen 16 mg/dL (9-20); Calcium 8.6 mg/dL (8.4-10.2); Carbon Dioxide 24 mmol/L (22-30); Chloride 105 mmol/L (98-107); Glucose 117 mg/dL (74-99); Non-African American GFR(CKD) 81 (>60 ml/min/1.73 sqM); Potassium 3.5 mmol/L (3.5-5.1); Sodium 138 mmol/L (137-145); Total Bilirubin 0.4 mg/dL (0.2-1.3); Total Protein 6.7 g/dL (6.3-8.2)
[2021-05-21 10:37] VITALS: BP 128/78; PULSE 80; TEMP 98
== END 2021-05-21 10:37 | disposition home or self-care (01) ==
LOC: EC 08:39
DX: D64.9 Anemia, unspecified (principal); Z79.01 Long term (current) use of anticoagulants; Z87.891 Personal history of nicotine dependence
CPT/HCPCS: 36415; 80053; 85025; 85610; 85730; 86850; 86900; 86901; 99284

== ENCOUNTER 2022-10-08 23:37 | Inpatient (IN) | payer MEDICARE, OTHER ==
[2022-10-08] MEDS ORDERED: SODIUM CHLORIDE 0.9% 1,000 ML IV STA (23:43)
[2022-10-08] MEDS ORDERED: ONDANSETRON 4 MG/2 ML VIAL IVP STA (23:43)
--- NOTE | 2022-10-08 23:58 | ED ---
GI Bleed HPI - General Chief complaint: GI Bleed Stated complaint: Vomitting Time Seen by Provider: 10/08/22 23:43 Source: patient, RN notes reviewed, old records reviewed Mode of arrival: EMS Limitations: no limitations - History of Present Illness Initial comments: This is a 77-year-old male from extended care facility for possible GI bleed patient himself has no complaints here in the ER. Patient is unsure why he is in the emergency department. States maybe not feeling well. Patient was told is had low hemoglobin before is concerned that maybe the case currently. No travel show sick contacts no other significant complaints MD complaint: other (Story is unclear) -: unknown Quality: painless Consistency: constant Improves with: none Worsens with: none Context: history of GI bleed Associated Symptoms: nausea Treatments Prior to Arrival: none - Related Data Home Medications Medication Instructions Recorded Confirmed Apixaban [Eliquis] 5 mg PO BID@0800,1700 03/15/21 10/09/22 Bumetanide 1 mg PO DAILY@0800 03/15/21 10/09/22 Chlorhexidine Gluconate [Hibiclens] 1 applic TOPICAL DAILY 03/15/21 10/09/22 Cholecalciferol [Vitamin D3 (25 25 mcg PO DAILY@0800 03/15/21 10/09/22 Mcg = 1000 Iu)] Levothyroxine Sodium [Synthroid] 50 mcg PO DAILY@0700 03/15/21 10/09/22 Metoprolol Tartrate [Lopressor] 12.5 mg PO BID@0800,1700 03/15/21 10/09/22 Midodrine [ProAmatine] 5 mg PO DAILY PRN 03/15/21 10/09/22 Nystatin 100,000 Unit/gm Powd 1 applic TOPICAL DAILY 03/15/21 10/09/22 [Mycostatin Powder] Pantoprazole [Protonix] 40 mg PO DAILY@0800 03/15/21 10/09/22 diphenhydrAMINE HCL [Benadryl] 25 mg PO BID PRN 03/15/21 10/09/22 guaiFENesin [Mucinex] 600 mg PO BID@0800,1700 03/15/21 10/09/22 Hydrocortisone Lotion 2% 1 applic TOPICAL QID 10/09/22 10/09/22 Liquacel 30 ml PO BID@0800,1700 10/09/22 10/09/22 Mupirocin Calcium 2% Cream 1 applic TOPICAL TID@0600,1400,2200 10/09/22 10/09/22 [Bactroban 2% Cream] predniSONE 10 mg PO DAILY@0800 10/09/22 10/09/22 Previous Rx's Medication Instructions Recorded Acetaminophen Tab [Tylenol] 650 mg PO Q6HR PRN tab 05/23/19 Budesonide [Pulmicort] 0.5 mg INHALATION RT-BID ml 10/11/22 Cefdinir [Omnicef] 300 mg PO BID cap 10/11/22 Ipratropium-Albuterol Nebulize 3 ml INHALATION RT-QID each 10/11/22 [Duoneb 0.5 mg-3 mg/3 ml Soln] Triamcinolone 0.1% Cream [Kenalog 1 applic TOPICAL BID each 10/11/22 0.1% Cream] Allergies Allergy/AdvReac Type Severity Reaction Status Date / Time No Known Allergies Allergy Verified 10/09/22 08:37 Review of Systems ROS Statement: Those systems with pertinent positive or pertinent negative responses have been documented in the HPI. ROS Other: All systems not noted in ROS Statement are negative. Past Medical History Past Medical History: No Reported History Additional Past Medical History / Comment(s): o2 dependent 2L. History of Any Multi-Drug Resistant Organisms: None Reported Additional Past Surgical History / Comment(s): left wrist surgery, Past Anesthesia/Blood Transfusion Reactions: No Reported Reaction Past Psychological History: No Psychological Hx Reported Smoking Status: Former smoker Past Alcohol Use History: None Reported Past Drug Use History: None Reported - Past Family History Father Family Medical History: Cancer Mother Family Medical History: Cancer General Exam Limitations: no limitations General appearance: alert, in no apparent distress Head exam: Present: atraumatic, normocephalic, normal inspection Eye exam: Present: normal appearance, PERRL, EOMI. Absent: scleral icterus, conjunctival injection, periorbital swelling ENT exam: Present: normal exam, mucous membranes moist Neck exam: Present: normal inspection. Absent: tenderness, meningismus, lymphadenopathy Respiratory exam: Present: normal lung sounds bilaterally. Absent: respiratory distress, wheezes, rales, rhonchi, stridor Cardiovascular Exam: Present: regular rate, normal rhythm, normal heart sounds. Absent: systolic murmur, diastolic murmur, rubs, gallop, clicks GI/Abdominal exam: Present: soft, normal bowel sounds. Absent: distended, tenderness, guarding, rebound, rigid Extremities exam: Present: normal inspection, full ROM, normal capillary refill. Absent: tenderness, pedal edema, joint swelling, calf tenderness Back exam: Present: normal inspection Neurological exam: Present: alert, oriented X3, CN II-XII intact Psychiatric exam: Present: normal affect, normal mood Skin exam: Present: warm, dry, intact, normal color. Absent: rash Course Vital Signs 10/08/22 10/09/22 10/09/22 23:41 07:00 08:00 Temperature 98.0 F 98.7 F Pulse Rate 99 71 71 Respiratory 20 18 18 Rate Blood Pressure 120/73 147/101 147/99 O2 Sat by Pulse 95 99 Oximetry 10/09/22 10/09/22 10/09/22 09:00 11:00 12:00 Temperature 98.1 F Pulse Rate 72 69 70 Respiratory 18 18 18 Rate Blood Pressure 140/78 137/80 148/96 O2 Sat by Pulse 95 95 98 Oximetry 10/09/22 10/09/22 10/09/22 14:00 18:00 20:08 Temperature Pulse Rate 72 89 78 Respiratory 18 18 15 Rate Blood Pressure 136/75 159/86 135/64 O2 Sat by Pulse 97 98 Oximetry 10/09/22 21:57 Temperature Pulse Rate 78 Respiratory 16 Rate Blood Pressure O2 Sat by Pulse Oximetry - Reevaluation(s) Reevaluation #1: 10/09/22 02:32 Medical records reviewed Reevaluation #2: 10/09/22 02:32 Patient symptoms are unchanged Reevaluation #3: 10/09/22 02:32 Patient informed of results and questions have been answered Reevaluation #4: 10/09/22 00:47 Was pt. sent in by a medical professional or institution? @ -no Did you speak to anyone other than the patient for history? @ -no Did you review nursing and triage notes? @ -agree Were old charts reviewed? @ -yes Differential Diagnosis? @ -prior EKG interpreted by me (3pts min.)? @ -yes X-rays interpreted by me (1pt min.)? @ -yes CT interpreted by me (1pt min.)? @ -yes U/S interpreted by me (1pt. min.)? @ -no What testing was considered but not performed? (CT, X-rays, U/S, labs)? Why? @ -no What meds were considered but not given? Why? @ -no Did you discuss the management of the patient with other professionals? @ -no Did you reconcile home meds? @ -no Was smoking cessation discussed for >3mins.? @ -no Was critical care preformed (if so, how long)? @ -no Were there social determinants of health that impacted care today? How? (Homelessness, low income, unemployed, alcoholism, drug addiction, transportation, low edu. Level, literacy, decrease access to med. care, retirement, rehab)? @ -no Was there de-escalation of care discussed even if they declined? (Discuss DNR or withdrawal of care, Hospice)? @ -no What co-morbidities impacted this encounter? (DM, HTN, Smoking, COPD, CAD, Cancer, CVA, Hep., AIDS, mental health diagnosis, sleep apnea, morbid obesity)? @ -none Was patient admitted / discharged? @ -77 male to the emergency department for possible GI bleed patient has abdominal pain and distention likely: Retention and stool. Patient is refusing enema here in the ER, we'll place on bowel regimen had surgery to see Admitted Undiagnosed new problem with uncertain prognosis? @ -no Drug Therapy requiring intensive monitoring for toxicity (Heparin, Nitro, Insulin, Cardizem)? @ -no Were any procedures done? @ -no Diagnosis/symptom? @ -GIB,Weak,FecalImpaction Acute, or Chronic, or Acute on Chronic? @ -acute Uncomplicated (without systemic symptoms) or Complicated (systemic symptoms)? @ -complicated Side effects of treatment? @ -no Exacerbation, Progression, or Severe Exacerbation] @ -no Poses a threat to life or bodily function? @ -yes if significant GI bleed Reevaluation #5: Differential Syncope: Valvular disease, hypertrophic cardiomyopathy, pulmonary embolism, tamponade, tachycardia, bradycardia, [place], hypovolemia, hemorrhage, dissection, anemia, intracranial hemorrhage, seizure, hypoglycemia, carbon monoxide poisoning, this is not meant to be an all-inclusive list. - Consultations Consultation #1: spoke with Dr. MUllally regarding patient he is agreeable to admit this patient Medical Decision Making - Medical Decision Making 77 male to the emergency department for possible GI bleed patient has abdominal pain and distention likely: Retention and stool. Patient is refusing enema here in the ER, we'll place on bowel regimen had surgery to see - Lab Data Result diagrams: 10/10/22 14:08 10/10/22 14:08 Lab Results 10/09/22 10/09/22 10/09/22 Range/Units 00:22 00:22 00:22 WBC 34.9 H (3.8-10.6) k/uL RBC 5.49 (4.30-5.90) m/uL Hgb 10.4 L (13.0-17.5) gm/dL Hct 36.0 L (39.0-53.0) % MCV 65.5 L (80.0-100.0) fL MCH 19.0 L (25.0-35.0) pg MCHC 29.0 L (31.0-37.0) g/dL RDW 17.8 H (11.5-15.5) % Plt Count 325 (150-450) k/uL MPV 7.8 Neutrophils % (Manual) 81 % Band Neuts % (Manual) 9 % Lymphocytes % (Manual) 7 % Monocytes % (Manual) 3 % Neutrophils # (Manual) 31.40 H (1.3-7.7) k/uL Lymphocytes # (Manual) 2.44 (1.0-4.8) k/uL Monocytes # (Manual) 1.05 H (0-1.0) k/uL Nucleated RBCs 0 (0-0) /100 WBC Manual Slide Review Performed Hypochromasia Marked Anisocytosis Slight Microcytosis Marked PT 9.8 (9.0-12.0) sec INR 0.9 (<1.2) APTT 18.3 L (22.0-30.0) sec Sodium 138 (137-145) mmol/L Potassium 3.9 (3.5-5.1) mmol/L Chloride 107 (98-107) mmol/L Carbon Dioxide 20 L (22-30) mmol/L Anion Gap 11 mmol/L BUN 19 (9-20) mg/dL Creatinine 0.76 (0.66-1.25) mg/dL Est GFR (CKD-EPI)AfAm >90 (>60 ml/min/1.73 sqM) Est GFR (CKD-EPI)NonAf 89 (>60 ml/min/1.73 sqM) Glucose 123 H (74-99) mg/dL Lactic Ac Sepsis Rflx Plasma Lactic Acid Isidro (0.7-2.0) mmol/L Calcium 9.0 (8.4-10.2) mg/dL Phosphorus 3.4 (2.5-4.5) mg/dL Magnesium 2.0 (1.6-2.3) mg/dL Total Bilirubin 0.5 (0.2-1.3) mg/dL AST 32 (17-59) U/L ALT 17 (4-49) U/L Alkaline Phosphatase 54 (38-126) U/L Troponin I (0.000-0.034) ng/mL NT-Pro-B Natriuret Pep pg/mL Total Protein 6.8 (6.3-8.2) g/dL Albumin 3.8 (3.5-5.0) g/dL Lipase 98 (23-300) U/L 10/09/22 10/09/22 10/09/22 Range/Units 00:22 00:22 00:22 WBC (3.8-10.6) k/uL RBC (4.30-5.90) m/uL Hgb (13.0-17.5) gm/dL Hct (39.0-53.0) % MCV (80.0-100.0) fL MCH (25.0-35.0) pg MCHC (31.0-37.0) g/dL RDW (11.5-15.5) % Plt Count (150-450) k/uL MPV Neutrophils % (Manual) % Band Neuts % (Manual) % Lymphocytes % (Manual) % Monocytes % (Manual) % Neutrophils # (Manual) (1.3-7.7) k/uL Lymphocytes # (Manual) (1.0-4.8) k/uL Monocytes # (Manual) (0-1.0) k/uL Nucleated RBCs (0-0) /100 WBC Manual Slide Review Hypochromasia Anisocytosis Microcytosis PT (9.0-12.0) sec INR (<1.2) APTT (22.0-30.0) sec Sodium (137-145) mmol/L Potassium (3.5-5.1) mmol/L Chloride (98-107) mmol/L Carbon Dioxide (22-30) mmol/L Anion Gap mmol/L BUN (9-20) mg/dL Creatinine (0.66-1.25) mg/dL Est GFR (CKD-EPI)AfAm (>60 ml/min/1.73 sqM) Est GFR (CKD-EPI)NonAf (>60 ml/min/1.73 sqM) Glucose (74-99) mg/dL Lactic Ac Sepsis Rflx Plasma Lactic Acid Isidro 2.5 H* (0.7-2.0) mmol/L Calcium (8.4-10.2) mg/dL Phosphorus (2.5-4.5) mg/dL Magnesium (1.6-2.3) mg/dL Total Bilirubin (0.2-1.3) mg/dL AST (17-59) U/L ALT (4-49) U/L Alkaline Phosphatase (38-126) U/L Troponin I <0.012 (0.000-0.034) ng/mL NT-Pro-B Natriuret Pep 192 pg/mL Total Protein (6.3-8.2) g/dL Albumin (3.5-5.0) g/dL Lipase (23-300) U/L 10/09/ Range/Units 01:32 WBC (3.8-10.6) k/uL RBC (4.30-5.90) m/uL Hgb (13.0-17.5) gm/dL Hct (39.0-53.0) % MCV (80.0-100.0) fL MCH (25.0-35.0) pg MCHC (31.0-37.0) g/dL RDW (11.5-15.5) % Plt Count (150-450) k/uL MPV Neutrophils % (Manual) % Band Neuts % (Manual) % Lymphocytes % (Manual) % Monocytes % (Manual) % Neutrophils # (Manual) (1.3-7.7) k/uL Lymphocytes # (Manual) (1.0-4.8) k/uL Monocytes # (Manual) (0-1.0) k/uL Nucleated RBCs (0-0) /100 WBC Manual Slide Review Hypochromasia Anisocytosis Microcytosis PT (9.0-12.0) sec INR (<1.2) APTT (22.0-30.0) sec Sodium (137-145) mmol/L Potassium (3.5-5.1) mmol/L Chloride (98-107) mmol/L Carbon Dioxide (22-30) mmol/L Anion Gap mmol/L BUN (9-20) mg/dL Creatinine (0.66-1.25) mg/dL Est GFR (CKD-EPI)AfAm (>60 ml/min/1.73 sqM) Est GFR (CKD-EPI)NonAf (>60 ml/min/1.73 sqM) Glucose (74-99) mg/dL Lactic Ac Sepsis Rflx Y Plasma Lactic Acid Isidro (0.7-2.0) mmol/L Calcium (8.4-10.2) mg/dL Phosphorus (2.5-4.5) mg/dL Magnesium (1.6-2.3) mg/dL Total Bilirubin (0.2-1.3) mg/dL AST (17-59) U/L ALT (4-49) U/L Alkaline Phosphatase (38-126) U/L Troponin I (0.000-0.034) ng/mL NT-Pro-B Natriuret Pep pg/mL Total Protein (6.3-8.2) g/dL Albumin (3.5-5.0) g/dL Lipase (23-300) U/L - EKG Data -: EKG Interpreted by Me (EKG is sinus 99 TN 165 QRS 84 QTC 392) - Radiology Data Radiology results: report reviewed (Chest x-ray negative CT of the abdomen and pelvis positive for fecal retention), image reviewed Disposition Clinical Impression: Lower gastrointestinal hemorrhage, Leukocytosis, Constipation, Abdominal pain Disposition: ADMITTED IP TO THIS HOSP Condition: Fair Is patient prescribed a controlled substance at d/c from ED?: No Time of Disposition: 04:00
[2022-10-09 00:39] LABS: Anisocytosis Slight; HGB 10.4 gm/dL (13.0-17.5); Hypochromasia Marked; MCV 65.5 fL (80.0-100.0); Mean Platelet Volume 7.8; Microcytosis Marked; Platelet Count 325 k/uL (150-450); RBC 5.49 m/uL (4.30-5.90); RDW 17.8 % (11.5-15.5); WBC 34.9 k/uL (3.8-10.6)
[2022-10-09 00:56] LABS: ALT 17 U/L (4-49); AST 32 U/L (17-59); African American GFR (CKD) >90 (>60 ml/min/1.73 sqM); Albumin 3.8 g/dL (3.5-5.0); Alkaline Phosphatase 54 U/L (38-126); Anion Gap 11 mmol/L; Blood Urea Nitrogen 19 mg/dL (9-20); Carbon Dioxide 20 mmol/L (22-30); Chloride 107 mmol/L (98-107); Glucose 123 mg/dL (74-99); Lipase 98 U/L (23-300); Non-African American GFR(CKD) 89 (>60 ml/min/1.73 sqM); Phosphorus 3.4 mg/dL (2.5-4.5); Potassium 3.9 mmol/L (3.5-5.1); Sodium 138 mmol/L (137-145); Total Bilirubin 0.5 mg/dL (0.2-1.3); Total Protein 6.8 g/dL (6.3-8.2)
[2022-10-09 00:57] LABS: INR 0.9 (<1.2); Prothrombin Time 9.8 sec (9.0-12.0)
[2022-10-09 00:58] LABS: Partial Thromboplastin Time 18.3 sec (22.0-30.0)
[2022-10-09 01:43] LABS: Band Neutrophils % 9 %; Lymphocytes # (M) 2.44 k/uL (1.0-4.8); Monocytes # (M) 1.05 k/uL (0-1.0); Neutrophils % (M) 81 %; Nucleated Red Blood Cells 0 /100 WBC (0-0); Total Cells Counted 100
--- NOTE | 2022-10-09 02:17 | XR ---
EXAM: XR Chest, 1 View CLINICAL HISTORY: ITS.REASON XR Reason: weak TECHNIQUE: Frontal view of the chest. COMPARISON: No relevant prior studies available. FINDINGS: Lungs: No consolidation or mass. Pleural space: No acute findings Heart: No cardiomegaly. Bones/joints: No acute findings. IMPRESSION: No acute cardiopulmonary process.
--- NOTE | 2022-10-09 03:41 | CT ---
EXAM: CT Abdomen and Pelvis With Intravenous Contrast CLINICAL HISTORY: abd pain/distention, vomiting Reason: pain TECHNIQUE: Axial computed tomography images of the abdomen and pelvis with intravenous contrast. CTDI is 19.3 mGy and DLP is 1058.3 mGy-cm. This CT exam was performed using one or more of the following dose reduction techniques: automated exposure control, adjustment of the mA and/or kV according to patient size, and/or use of iterative reconstruction technique. COMPARISON: Chest x-ray from October 09, 2022 FINDINGS: Lung bases: Unremarkable. No mass. No consolidation. Mediastinum: Mild circumferential wall thickening involving the lower esophagus suggesting esophagitis. Possible small hiatal hernia measuring 2.5 cm. ABDOMEN: Liver: Unremarkable. No mass. Gallbladder and bile ducts: Unremarkable. No calcified stones. No ductal dilation. Pancreas: Unremarkable. No mass. No ductal dilation. Spleen: Unremarkable. No splenomegaly. Adrenals: Unremarkable. No mass. Kidneys and ureters: Delayed images show normal renal contrast excretion bilaterally. There is a 3.7 cm simple cyst extending off the posterior left kidney. No follow-up is required. No hydronephrosis. Stomach and bowel: 8 cm of stool in the rectum consistent with constipation. The remaining loops of: Gas distended. No pneumoperitoneum, free fluid, or acute inflammatory changes are seen involving the bowel. No mucosal thickening. PELVIS: Appendix: No findings to suggest acute appendicitis. Bladder: Unremarkable. No mass. Reproductive: Unremarkable as visualized. ABDOMEN and PELVIS: Intraperitoneal space: See above. Bones/joints: Mild degenerative changes in the spine. No acute fracture or subluxation is seen. Soft tissues: Unremarkable. Vasculature: The abdominal aorta is mildly calcified but nondilated. Lymph nodes: Unremarkable. No enlarged lymph nodes. IMPRESSION: 1. 8 cm of stool in the rectum consistent with constipation. The remaining loops of: Gas distended. No pneumoperitoneum, free fluid, or acute inflammatory changes are seen involving the bowel. 2. Mild circumferential wall thickening involving the lower esophagus suggesting esophagitis. Possible small hiatal hernia measuring 2.5 cm.
[2022-10-09] MEDS ORDERED: AMPICILLIN-SULBACTAM 3 GM in SODIUM CHLORIDE 0.9% 100 ML IVPB STA (03:53)
[2022-10-09] MEDS ORDERED: NA PHOS,M-B/NA PHOS,DI-BA 133 ML ENEMA RECTAL STA (04:00)
[2022-10-09] MEDS ORDERED: SENNOSIDES-DOCUSATE SODIUM 1 EACH TAB PO STA (04:00)
[2022-10-09] MEDS ORDERED: GLYCERIN ADULT SUPPOSITORY 1 EACH RECTAL STA (04:00)
[2022-10-09] MEDS ORDERED: MINERAL OIL 133 ML ENEMA RECTAL STA (04:00)
[2022-10-09] MEDS ORDERED: ONDANSETRON 4 MG/2 ML VIAL IVP PRN (04:08)
[2022-10-09] MEDS ORDERED: NALOXONE 0.4 MG/ML 1 ML VIAL IV PRN (04:08)
[2022-10-09] MEDS: SODIUM CHLORIDE 0.9% 1,000 ML IV SCH ×4 (06:15→22:33)
[2022-10-09] MEDS: PANTOPRAZOLE 40 MG/10 ML VIAL IVP SCH (08:09)
[2022-10-09] MEDS: polyethylene glycoL 3350 17 GM POWD.PACK PO SCH (08:16)
--- NOTE | 2022-10-09 09:08 | P.CONS ---
History of Present Illness - Reason for Consult Consult date: 10/09/22 GI bleed Requesting physician: Carlos Mas - Chief Complaint Vomiting - History of Present Illness This is a pleasant 77-year-old male with a past history significant for chronic wounds on his buttocks and chronic anemia who resides at [facility] and was sent in for questionable upper GI bleed. According to the ER note patient had some vomiting yesterday and the nursing staff at [facility] reported that there was blood in it. Patient denies any blood in his vomit states that he vomited once and it was just what he ate. He denies previous history of upper GI bleed, states that he does get some acid reflux, denies any abdominal pain, nausea or vomiting at this time. He is requesting to eat. He had a CT of the abdomen and pelvis with contrast reporting 8 cm of stool in the rectum consistent with constipation. Remaining loops of gas distended no pneumoperitoneum free fluid or acute inflammatory changes seen involving the bowel. Mild circumferential wall thickening involving the lower esophagus suggesting esophagitis possible small hiatal hernia measuring 2.5 cm. Patient has not had any further vomiting, states he does have some problems with chronic constipation. Denies any acute abdominal pain, no shortness of breath, chest pain, fevers or chills. WBC 34.9 hemoglobin 10.4 hematocrit 36 platelet count 325,000 INR 0.9 sodium 138 potassium 3.9 BUN 19 creatinine 0.7 glucose 123 lactic acid 2.5 total bilirubin 0.5 AST 32 ALT 17, and phosphatase 54 lipase 98 He was reportedly given glycerin suppository, Fleet enema and had a reportedly normal large bowel movement. Review of Systems REVIEW OF SYSTEMS: CARDIOPULMONARY: No chest pain or shortness of breath. Gastrointestinal: Reportsacid reflux. Vomiting one time yesterday and he denies any blood in emesis. No rectal bleeding, or melena. Constipation. GENITOURINARY: No dysuria or hematuria. MUSCULOSKELETAL: Reports normal range of motion. Joint pain. SKIN: No rashes. No jaundice. Chronic wound. ENDOCRINE: No chills, fevers. No excessive weight gain or loss. No polydipsia or polyuria. PSYCHIATRIC: Unremarkable. NEUROLOGY: No change in mental status. Denies dizziness, headache. ENT: Vision unremarkable. CONSTITUTIONAL: No recent weight loss. No fever, chills, night sweats. Past Medical History Past Medical History: No Reported History Additional Past Medical History / Comment(s): o2 dependent 2L. History of Any Multi-Drug Resistant Organisms: None Reported Additional Past Surgical History / Comment(s): left wrist surgery, Past Anesthesia/Blood Transfusion Reactions: No Reported Reaction Past Psychological History: No Psychological Hx Reported Smoking Status: Former smoker Past Alcohol Use History: None Reported Past Drug Use History: None Reported - Past Family History Father Family Medical History: Cancer Mother Family Medical History: Cancer Medications and Allergies Home Medications Medication Instructions Recorded Confirmed Type Acetaminophen Tab [Tylenol] 650 mg PO Q6HR PRN tab 05/23/19 05/21/21 Rx Apixaban [Eliquis] 5 mg PO BID@0800,1700 03/15/21 05/21/21 History Ascorbic Acid [Vitamin C] 500 mg PO DAILY@0800 03/15/21 05/21/21 History Bumetanide 1 mg PO DAILY@0800 03/15/21 05/21/21 History Chlorhexidine Gluconate [Hibiclens] 1 applic TOPICAL DAILY 03/15/21 05/21/21 History Cholecalciferol [Vitamin D3 (25 25 mcg PO DAILY@0800 03/15/21 05/21/21 History Mcg = 1000 Iu)] Dakins 0.25% Kasey 1 applic TOPICAL DAILY 03/15/21 05/21/21 History Levothyroxine Sodium [Synthroid] 50 mcg PO DAILY@0700 03/15/21 05/21/21 History Magnesium Hydroxide [Milk of 2,400 mg PO DAILY PRN 03/15/21 05/21/21 History Magnesia] Melatonin 3 mg PO HS@2100 03/15/21 05/21/21 History Metoprolol Tartrate [Lopressor] 12.5 mg PO BID@0800,1700 03/15/21 05/21/21 History Midodrine [ProAmatine] 5 mg PO DAILY PRN 03/15/21 05/21/21 History Na Phos,M-B/Na Phos,Di-Ba [Fleet 133 ml RECTAL DAILY PRN 03/15/21 05/21/21 History Adult] Nystatin 100,000 Unit/gm Powd 1 applic TOPICAL DAILY 03/15/21 05/21/21 History [Mycostatin Powder] Pantoprazole [Protonix] 40 mg PO DAILY@0800 03/15/21 05/21/21 History bisacodyL [Dulcolax] 10 mg RECTAL DAILY PRN 03/15/21 05/21/21 History diphenhydrAMINE HCL [Benadryl] 25 mg PO DAILY PRN 03/15/21 05/21/21 History guaiFENesin [Mucinex] 600 mg PO BID@0800,1700 03/15/21 05/21/21 History hydrOXYzine HCL [Atarax] 25 mg PO Q6H PRN 03/15/21 05/21/21 History Clindamyycin Lotion 1% 1 applic TOPICAL DAILY 05/21/21 05/21/21 History Sodium Chloride Irrig Solution 10 ml IV DIRECTED 05/21/21 05/21/21 History [Saline 0.9% Irrigation] Allergies Allergy/AdvReac Type Severity Reaction Status Date / Time No Known Allergies Allergy Verified 10/09/22 08:37 Physical Exam Vitals: Vital Signs Temp Pulse Resp BP Pulse Ox 10/08/22 23:41 98.0 F 99 20 120/73 95 Intake and Output 10/08/22 10/08/22 10/09/22 14:59 22:59 06:59 Other: Weight 80.739 kg General appearance: The patient is alert, oriented, appears in no acute distress. HET: Head is normocephalic and atraumatic. Conjunctiva pink. Sclera anicteric. Neck: Supple without lymphadenopathy. Trachea midline. Heart: S1 S2. Regular rate and rhythm. Lungs: Clear to auscultation. Abdomen: Soft, nontender, nondistended with bowel sounds. No guarding or rigidity. Skin: No rashes. No jaundice. Extremities: Normal skin color and turgor. No pedal edema. Neurological: No focal deficits. Alert and oriented x3. Results CBC & Chem 7: 10/09/22 00:22 10/09/22 00:22 Labs: Abnormal Lab Results - Last 24 Hours (Table) 10/09/22 10/09/22 10/09/22 Range/Units 00:22 00:22 00:22 WBC 34.9 H (3.8-10.6) k/uL Hgb 10.4 L (13.0-17.5) gm/dL Hct 36.0 L (39.0-53.0) % MCV 65.5 L (80.0-100.0) fL MCH 19.0 L (25.0-35.0) pg MCHC 29.0 L (31.0-37.0) g/dL RDW 17.8 H (11.5-15.5) % Neutrophils # (Manual) 31.40 H (1.3-7.7) k/uL Monocytes # (Manual) 1.05 H (0-1.0) k/uL APTT 18.3 L (22.0-30.0) sec Carbon Dioxide 20 L (22-30) mmol/L Glucose 123 H (74-99) mg/dL Plasma Lactic Acid Isidro (0.7-2.0) mmol/L 10/09/22 Range/Units 00:22 WBC (3.8-10.6) k/uL Hgb (13.0-17.5) gm/dL Hct (39.0-53.0) % MCV (80.0-100.0) fL MCH (25.0-35.0) pg MCHC (31.0-37.0) g/dL RDW (11.5-15.5) % Neutrophils # (Manual) (1.3-7.7) k/uL Monocytes # (Manual) (0-1.0) k/uL APTT (22.0-30.0) sec Carbon Dioxide (22-30) mmol/L Glucose (74-99) mg/dL Plasma Lactic Acid Isidro 2.5 H* (0.7-2.0) mmol/L CT scan - abdomen: report reviewed Assessment and Plan (1) Esophagitis Narrative/Plan: 77-year-old male with history of chronic anemia and chronic wounds was brought in from [facility] for concerns for possible upper GI bleed. Patient had episode of vomiting yesterday and reportedly from nursing staff they were concerned the re could be blood in it. Patient states there was no blood that he states it was his food contents. He denies any further vomiting, no history of GI bleed, denies abdominal pain, but does state that he has chronic constipation. He had a CT abdomen and pelvis reporting stool burden as well as mild wall thickening involving the lower esophagus suggestive of esophagitis. Will start patient on PPIs, as patient has any further episodes concerning for hematemesis can consider upper endoscopy in the outpatient setting as there will be no further GI available this weekend. Current Visit: Yes Status: Acute Code(s): K20.90 - ESOPHAGITIS, UNSPECIFIED WITHOUT BLEEDING SNOMED Code(s): 18894792 (2) Chronic anemia Current Visit: Yes Status: Acute Code(s): D64.9 - ANEMIA, UNSPECIFIED SNOMED Code(s): 144667640 (3) Constipation Current Visit: Yes Status: Acute Code(s): K59.00 - CONSTIPATION, UNSPECIFIED SNOMED Code(s): 03025328 (4) Leukocytosis Current Visit: Yes Status: Acute Code(s): D72.829 - ELEVATED WHITE BLOOD CELL COUNT, UNSPECIFIED SNOMED Code(s): 153012783 Plan: 1. Continue symptomatic and supportive care 2. Protonix 40 mg daily 3. Diet as tolerated 4. Recommend regular bowel regimen on discharge, MiraLAX daily can titrate to have twice a day if needed 5. No plans on endoscopic evaluation Thank you for allowing us to participate in the care of the patient, the GI serv ice will sign off, gastroenterology will not be available at the hospital this weekend. If further evaluation by gastroenterology is required the patient will need transfer as per the primary team's discretion.
[2022-10-09] MEDS: AMPICILLIN-SULBACTAM 3 GM in SODIUM CHLORIDE 0.9% 100 ML IVPB SCH ×2 (13:12→21:27)
[2022-10-09 13:20] LABS: Appearance,Urine Clear (Clear); Bilirubin,Urine Negative (Negative); Blood,Urine Negative (Negative); Color,Urine Yellow; Glucose,Urine (UA) Negative (Negative); Ketones,Urine Negative (Negative); Leukocyte Esterase,Urine Negative (Negative); Nitrite,Urine Negative (Negative); Protein,Urine Trace (Negative); Specific Gravity,Urine 1.043 (1.001-1.035); Urobilinogen,Urine <2.0 mg/dL (<2.0)
--- NOTE | 2022-10-09 15:43 | P.GSCN ---
History of Present Illness Consult date: 10/09/22 History of present illness: CHIEF COMPLAINT: GI bleed HISTORY OF PRESENT ILLNESS: This is a 77-year-old male from [facility] who was sent here due to possible GI bleed. Nursing staff had reported blood in the emesis. However patient reports that it was just food. He denies any abdominal pain. He had a bowel movement yesterday evening as well as one around 2 AM today no evidence of blood. He is having flatus. He reports the stools were normal. He denies any straining to have bowel movements. Patient had a computed tomography scan abdomen and pelvis revealing an 8 cm of stool in the rectum consistent with constipation. The remaining loops of gas distended. No pneumoperitoneum, free fluid or acute inflammatory changes are seen involving the bowel. Mild c ircumferential wall thickening involving the lower esophagitis. Suggesting esophagitis. Possible small hiatal hernia measuring 2.5 cm. Apparently patient refused the enema in the ER. Patient currently on a regular diet. He is also followed by GI service. Patient does complain of skin irritation to his buttocks and back and when she is on steroids. Patient does have elevated WBC of 34.9 PAST MEDICAL HISTORY: See below. History of buttock abscess status post I&D, eczema PAST SURGICAL HISTORY: See below MEDICATIONS: See below ALLERGIES: See below SOCIAL HISTORY: No illicit drug use. REVIEW OF SYSTEMS: CONSTITUTIONAL: Denies fever or chills. HEENT: Denies blurred vision, vision changes, or eye pain. Denies hemoptysis CARDIOVASCULAR: Denies chest pain or pressure. RESPIRATORY: No shortness of breath. GASTROINTESTINAL: See HPI for pertinent findings HEMATOLOGIC: Denies bleeding disorders. GENITOURINARY: Denies any blood in urine or increased urinary frequency. SKIN: Denies pruitis. Denies rash. PHYSICAL EXAM: VITAL SIGNS: Reviewed GENERAL: Well-developed in no acute distress. HEENT: No sclera icterus. Extraocular movements grossly intact. Moist buccal mucosa. Head is atraumatic, normocephalic. No nasal drainage. ABDOMEN: Soft. Nondistended. Nontender Rectal exam no evidence of stool ball. Soft stool noted NEUROLOGIC: Alert and oriented. Cranial nerves II through XII grossly intact. Skin: Buttocks no open wounds. Evidence of dermatitis skin changes and skin is inflamed and thickened LABORATORY DATA: WBC is 34.9 Hgb 10.4 platelets 325 Sodium is 138 potassium 3.9 creatinine 0.76 Glucose 123 Sodium 2.5 down to 1.8 Magnesium 2.0 LFTs normal Lipase 98 Urinalysis negative for infection IMAGING: Computed tomography scan shows 8 cm of stool in the rectum consistent with constipation. The remaining loops of gas distended. No pneumoperitoneum, free fluid or acute inflammatory changes are seen within the bowel. Mild circumferential wall thickening involving the lower esophagus adjusting esophagitis. Possible small hiatal hernia measuring 2.5 cm. Chest x-ray no acute cardiopulmonary process ASSESSMENT: 1. Constipation with 8 cm of stool noted in the rectum 2. Esophagitis with mild circumferential wall thickening of the esophagus noted on computed tomography scan 3. Leukocytosis 4. Chronic anemia PLAN: -Further recommendations forthcoming per surgeon -Continue bowel regimen -Continue regular diet -Continue PPI for esophagitis -Repeat CBC in a.m. -Continue supportive care Thank you for this consultation Physician Paedodontist note has been reviewed by physician. Signing provider agrees with the documented findings, assessment, and plan of care. I have personally seen and examined the patient, reviewed the [employer] /PAs history, exam and MDM and agree with the assessment and plan as written. Based on total visit time, I have performed more than 50% of the visit. As above: Patient with abdominal bloating and some vomiting. Emesis earlier appeared more food like. He says he had 2 large bowel movements this morning and feels much better. He feels less bloated. He passed a lot of gas. No fecal impaction on exam. Patient has significant leukocytosis and etiology for that is unclear. Continue diet as ordered. We'll follow with you. Past Medical History Past Medical History: No Reported History Additional Past Medical History / Comment(s): o2 dependent 2L. History of Any Multi-Drug Resistant Organisms: None Reported Additional Past Surgical History / Comment(s): left wrist surgery, Past Anesthesia/Blood Transfusion Reactions: No Reported Reaction Past Psychological History: No Psychological Hx Reported Smoking Status: Former smoker Past Alcohol Use History: None Reported Past Drug Use History: None Reported - Past Family History Father Family Medical History: Cancer Mother Family Medical History: Cancer Medications and Allergies Home Medications Medication Instructions Recorded Confirmed Type RX: Acetaminophen Tab [Tylenol] 650 mg PO Q6HR PRN tab 05/23/19 10/09/22 Rx Apixaban [Eliquis] 5 mg PO BID@0800,1700 03/15/21 10/09/22 History Ascorbic Acid [Vitamin C] 500 mg PO DAILY@0800 03/15/21 10/09/22 History Chlorhexidine Gluconate [Hibiclens] 1 applic TOPICAL DAILY 03/15/21 10/09/22 History Cholecalciferol [Vitamin D3 (25 25 mcg PO DAILY@0800 03/15/21 10/09/22 History Mcg = 1000 Iu)] Levothyroxine Sodium [Synthroid] 50 mcg PO DAILY@0700 03/15/21 10/09/22 History Magnesium Hydroxide [Milk of 2,400 mg PO DAILY PRN 03/15/21 10/09/22 History Magnesia] Metoprolol Tartrate [Lopressor] 12.5 mg PO BID@0800,1700 03/15/21 10/09/22 History Midodrine [ProAmatine] 5 mg PO DAILY PRN 03/15/21 10/09/22 History Na Phos,M-B/Na Phos,Di-Ba [Fleet 133 ml RECTAL DAILY PRN 03/15/21 10/09/22 History Adult] Nystatin 100,000 Unit/gm Powd 1 applic TOPICAL DAILY 03/15/21 10/09/22 History [Mycostatin Powder] RX: Bumetanide 1 mg PO DAILY@0800 03/15/21 10/09/22 History RX: Melatonin 3 mg PO HS@2100 03/15/21 10/09/22 History RX: Pantoprazole [Protonix] 40 mg PO DAILY@0800 03/15/21 10/09/22 History bisacodyL [Dulcolax] 10 mg RECTAL DAILY PRN 03/15/21 10/09/22 History diphenhydrAMINE HCL [Benadryl] 25 mg PO BID PRN 03/15/21 10/09/22 History guaiFENesin [Mucinex] 600 mg PO BID@0800,1700 03/15/21 10/09/22 History Hydrocortisone Lotion 2% 1 applic TOPICAL QID 10/09/22 10/09/22 History Liquacel 30 ml PO BID@0800,1700 10/09/22 10/09/22 History Mupirocin Calcium 2% Cream 1 applic TOPICAL TID@0600,1400,2200 10/09/22 10/09/22 History [Bactroban 2% Cream] RX: predniSONE 10 mg PO DAILY@0800 10/09/22 10/09/22 History Allergies Allergy/AdvReac Type Severity Reaction Status Date / Time No Known Allergies Allergy Verified 10/09/22 08:37 Surgical - Exam Vital Signs Temp Pulse Resp BP Pulse Ox 98.0 F 99 20 120/73 95 10/08/22 23:41 10/08/22 23:41 10/08/22 23:41 10/08/22 23:41 10/08/22 23:41 Results - Labs 10/09/22 00:22 10/09/22 00:22 Abnormal Lab Results - Last 24 Hours (Table) 10/09/22 10/09/22 10/09/22 Range/Units 00:22 00:22 00:22 WBC 34.9 H (3.8-10.6) k/uL Hgb 10.4 L (13.0-17.5) gm/dL Hct 36.0 L (39.0-53.0) % MCV 65.5 L (80.0-100.0) fL MCH 19.0 L (25.0-35.0) pg MCHC 29.0 L (31.0-37.0) g/dL RDW 17.8 H (11.5-15.5) % Neutrophils # (Manual) 31.40 H (1.3-7.7) k/uL Monocytes # (Manual) 1.05 H (0-1.0) k/uL APTT 18.3 L (22.0-30.0) sec Carbon Dioxide 20 L (22-30) mmol/L Glucose 123 H (74-99) mg/dL Plasma Lactic Acid Isidro (0.7-2.0) mmol/L 10/09/22 Range/Units 00:22 WBC (3.8-10.6) k/uL Hgb (13.0-17.5) gm/dL Hct (39.0-53.0) % MCV (80.0-100.0) fL MCH (25.0-35.0) pg MCHC (31.0-37.0) g/dL RDW (11.5-15.5) % Neutrophils # (Manual) (1.3-7.7) k/uL Monocytes # (Manual) (0-1.0) k/uL APTT (22.0-30.0) sec Carbon Dioxide (22-30) mmol/L Glucose (74-99) mg/dL Plasma Lactic Acid Isidro 2.5 H* (0.7-2.0) mmol/L Diabetes panel 10/09/22 Range/Units 00:22 Sodium 138 (137-145) mmol/L Potassium 3.9 (3.5-5.1) mmol/L Chloride 107 (98-107) mmol/L Carbon Dioxide 20 L (22-30) mmol/L BUN 19 (9-20) mg/dL Creatinine 0.76 (0.66-1.25) mg/dL Glucose 123 H (74-99) mg/dL Calcium 9.0 (8.4-10.2) mg/dL AST 32 (17-59) U/L ALT 17 (4-49) U/L Alkaline Phosphatase 54 (38-126) U/L Total Protein 6.8 (6.3-8.2) g/dL Albumin 3.8 (3.5-5.0) g/dL Calcium panel 10/09/22 Range/Units 00:22 Calcium 9.0 (8.4-10.2) mg/dL Phosphorus 3.4 (2.5-4.5) mg/dL Albumin 3.8 (3.5-5.0) g/dL Pituitary panel 10/09/22 Range/Units 00:22 Sodium 138 (137-145) mmol/L Potassium 3.9 (3.5-5.1) mmol/L Chloride 107 (98-107) mmol/L Carbon Dioxide 20 L (22-30) mmol/L BUN 19 (9-20) mg/dL Creatinine 0.76 (0.66-1.25) mg/dL Glucose 123 H (74-99) mg/dL Calcium 9.0 (8.4-10.2) mg/dL Adrenal panel 10/09/22 Range/Units 00:22 Sodium 138 (137-145) mmol/L Potassium 3.9 (3.5-5.1) mmol/L Chloride 107 (98-107) mmol/L Carbon Dioxide 20 L (22-30) mmol/L BUN 19 (9-20) mg/dL Creatinine 0.76 (0.66-1.25) mg/dL Glucose 123 H (74-99) mg/dL Calcium 9.0 (8.4-10.2) mg/dL Total Bilirubin 0.5 (0.2-1.3) mg/dL AST 32 (17-59) U/L ALT 17 (4-49) U/L Alkaline Phosphatase 54 (38-126) U/L Total Protein 6.8 (6.3-8.2) g/dL Albumin 3.8 (3.5-5.0) g/dL
[2022-10-09] MEDS ORDERED: diphenhydrAMINE 25 MG CAP PO PRN (17:27)
[2022-10-09] MEDS ORDERED: IOPAMIDOL CONTRAST (ORAL USE) VIAL PO PRN (17:34)
[2022-10-09 19:13] LABS: C Reactive Protein 3.4 mg/dL (<1.0)
[2022-10-09] MEDS: FLUCONAZOLE IN NACL,ISO-OSM 100 MG in SALINE 1 50ML.BAG IVPB SCH (20:06)
[2022-10-09 20:44] LABS: T4, Free (Free Thyroxine) 1.11 ng/dL (0.78-2.19)
[2022-10-09] MEDS: HYDROCORTISONE 2% TOPICAL SCH (22:32)
[2022-10-09] MEDS: HEPARIN SODIUM,PORCINE/PF 5,000 UNIT/0.5 ML SYRINGE SQ SCH (22:33)
[2022-10-10] MEDS: LEVOTHYROXINE 50 MCG TAB PO SCH ×2 (05:22→05:26)
[2022-10-10] MEDS: AMPICILLIN-SULBACTAM 3 GM in SODIUM CHLORIDE 0.9% 100 ML IVPB SCH ×3 (05:23→19:25)
--- NOTE | 2022-10-10 09:52 | P.PN ---
Subjective Progress Note Date: 10/10/22 Principal diagnosis: Abdominal pain Patient doing better today. Says he has no pain at this time. Tolerating his regular diet. No nausea or vomiting. He had normal stools yesterday. Passing flatus. Objective - Vital Signs Vital signs: Vital Signs Temp 98.2 F 10/10/22 08:00 Pulse 67 10/10/22 08:00 Resp 18 10/10/22 08:00 BP 121/68 10/10/22 08:00 Pulse Ox 99 10/10/22 08:00 FiO2 Intake & Output 10/09/22 10/10/22 10/10/22 18:59 06:59 18:59 Output Total 450 Balance -450 Weight 80.739 kg Output: Urine 450 - Exam Abdomen: Soft, nondistended, nontender - Labs CBC & Chem 7: 10/09/22 00:22 10/09/22 00:22 Labs: Abnormal Lab Results - Last 24 Hours (Table) 10/09/22 10/09/22 Range/Units 13:00 18:38 C-Reactive Protein 3.4 H (<1.0) mg/dL TSH 0.391 L (0.465-4.680) mIU/L Ur Specific [place] 1.043 H (1.001-1.035) Urine Protein Trace H (Negative) Assessment and Plan (1) Abdominal pain Narrative/Plan: Patient says his pain is resolved. He is tolerating his diet. Significant leukocytosis without obvious source at this time. Await repeat labs. Continue diet as tolerated. Will follow. Current Visit: Yes Status: Acute Code(s): R10.9 - UNSPECIFIED ABDOMINAL PAIN SNOMED Code(s): 60572719
[2022-10-10] MEDS: METOPROLOL TARTRATE 12.5 MG TAB PO SCH ×2 (10:14→21:17)
[2022-10-10] MEDS: PANTOPRAZOLE 40 MG TABLET PO SCH (10:14)
[2022-10-10] MEDS: CHLORHEXIDINE GLUCONATE 15 ML CUP MUCOUS MEM SCH (10:14)
[2022-10-10] MEDS: HYDROCORTISONE 2% TOPICAL SCH ×4 (10:14→22:28)
[2022-10-10] MEDS: HEPARIN SODIUM,PORCINE/PF 5,000 UNIT/0.5 ML SYRINGE SQ SCH ×2 (10:14→16:16)
[2022-10-10] MEDS: NYSTATIN 100,000 UNIT/GM POWD 15 GM TOPICAL SCH (10:15)
[2022-10-10] MEDS: polyethylene glycoL 3350 17 GM POWD.PACK PO SCH (10:15)
[2022-10-10] MEDS: PANTOPRAZOLE 40 MG/10 ML VIAL IVP SCH (11:36)
[2022-10-10] MEDS: FLUCONAZOLE IN NACL,ISO-OSM 100 MG in SALINE 1 50ML.BAG IVPB SCH (11:54)
[2022-10-10 14:44] LABS: Anisocytosis Slight; Basophils % (A) 0 %; Eosinophils # (A) 0.3 k/uL (0-0.7); Eosinophils % (A) 2 %; HGB 9.6 gm/dL (13.0-17.5); Hypochromasia Marked; Lymphocytes # (A) 1.9 k/uL (1.0-4.8); Lymphocytes % (A) 15 %; MCH 19.5 pg (25.0-35.0); MCHC 29.1 g/dL (31.0-37.0); MCV 66.8 fL (80.0-100.0); Microcytosis Marked; Monocytes # (A) 0.5 k/uL (0-1.0); Monocytes % (A) 4 %; Neutrophils # (A) 9.5 k/uL (1.3-7.7); Neutrophils % (A) 77 %; Platelet Count 238 k/uL (150-450); RBC 4.95 m/uL (4.30-5.90); RDW 17.8 % (11.5-15.5); WBC 12.3 k/uL (3.8-10.6)
[2022-10-10 14:48] LABS: ALT 12 U/L (4-49); AST 24 U/L (17-59); African American GFR (CKD) >90 (>60 ml/min/1.73 sqM); Albumin/Globulin Ratio 1.2; Alkaline Phosphatase 52 U/L (38-126); Anion Gap 6 mmol/L; Blood Urea Nitrogen 8 mg/dL (9-20); Calcium 7.9 mg/dL (8.4-10.2); Carbon Dioxide 22 mmol/L (22-30); Chloride 112 mmol/L (98-107); Globulin 2.6 g/dL; Glucose 75 mg/dL (74-99); Non-African American GFR(CKD) >90 (>60 ml/min/1.73 sqM); Phosphorus 2.9 mg/dL (2.5-4.5); Sodium 140 mmol/L (137-145); Total Bilirubin 0.3 mg/dL (0.2-1.3); Total Protein 5.6 g/dL (6.3-8.2)
[2022-10-10] MEDS: SODIUM CHLORIDE 0.9% 1,000 ML IV SCH ×2 (16:15→19:24)
[2022-10-10] MEDS: TRIAMCINOLONE 0.1% CREAM 80 GM TUBE TOPICAL SCH ×2 (17:14→21:17)
--- NOTE | 2022-10-10 18:11 | CT ---
EXAMINATION TYPE: CT chest wo con DATE OF EXAM: 10/10/2022 COMPARISON: None HISTORY: abcess? CT DLP: 342.6 mGycm. Automated Exposure Control for Dose Reduction was Utilized. TECHNIQUE: CT scan of the thorax is performed without IV contrast. FINDINGS: There are marked emphysematous changes with marked cystic changes in the upper lobes. There are a few small consolidative densities in the left lung base which were not present in the lung bases on the prior CT the abdomen pelvis dated 10/09/2022. Findings could represent developing pneumonic infiltrate . There is no evidence of a lung abscess. There is no pneumothorax or large pleural effusion. The great vessels chest are normal and there is no mediastinal, hilar or axillary adenopathy. Limited scanning through the upper abdomen reveals no gross abnormality. No focal lytic or blastic osseous abnormalities are seen. IMPRESSION: 1. Marked emphysematous changes. 2. No evidence of lung abscess. 3. 2 small focal infiltrates in the left lung base which could represent an early pneumonic process. Short-term follow-up is recommended.
--- NOTE | 2022-10-10 22:48 | P.CONS ---
History of Present Illness - Reason for Consult Consult date: 10/10/22 leukocytosis Requesting physician: Jeffery Madrigal - Chief Complaint vomiting and hemetemesis x 1 day - History of Present Illness Patient is a 77-year-old male with a past medical history significant for hypertension hypothyroidism reflux and a history of chronic wound and abscess to bilateral gluteal area that has been diagnosed with hydradenitis and previously completed multiple courses of antibiotic therapy patient is currently a resident of the local skilled nursing patient has been sent to the ER for evaluation of possible GI bleed apparently the patient did have an episode of vomiting and the nursing staff mention there was blood in it patient denies peña ving any right hemoptysis has some vague epigastric pain but denies any nausea or vomiting further denies any abdominal pain no constipation no diarrhea patient on presentation to the hospital was afebrile and no fever has been recorded subsequently patient did have a white count of 34.9 with a left shift kidney function was normal liver exams are normal CRP 3.4 patient did have a negative UA chest x-ray no acute cardiopulmonary disease abdominal pelvis CT 8 cm stool in the rectum consistent with constipation mild circumferential wall thickening involving the lower esophagus suggesting esophagitis patient was started on Unasyn and Diflucan infectious he was consulted because of elevated white count patient also mention he recently was on steroids because of rash to the lower extremity and has been on steroid cream to the gluteal area with the patient currently has been complaining of itching did have an erythematous rash to wait no pain Review of Systems Positive point and negatives has been mentioned in the HPI, complete review of systems was performed and all other systems are negative Past Medical History Past Medical History: Osteoarthritis (OA) Additional Past Medical History / Comment(s): o2 dependent 2L. History of Any Multi-Drug Resistant Organisms: None Reported Additional Past Surgical History / Comment(s): left wrist surgery, Past Anesthesia/Blood Transfusion Reactions: No Reported Reaction Past Psychological History: No Psychological Hx Reported Smoking Status: Former smoker Past Alcohol Use History: None Reported Past Drug Use History: None Reported - Past Family History Father Family Medical History: Cancer Mother Family Medical History: Cancer Medications and Allergies Home Medications Medication Instructions Recorded Confirmed Type Acetaminophen Tab [Tylenol] 650 mg PO Q6HR PRN tab 05/23/19 10/09/22 Rx Apixaban [Eliquis] 5 mg PO BID@0800,1700 03/15/21 10/09/22 History Bumetanide 1 mg PO DAILY@0800 03/15/21 10/09/22 History Chlorhexidine Gluconate [Hibiclens] 1 applic TOPICAL DAILY 03/15/21 10/09/22 History Cholecalciferol [Vitamin D3 (25 25 mcg PO DAILY@0800 03/15/21 10/09/22 History Mcg = 1000 Iu)] Levothyroxine Sodium [Synthroid] 50 mcg PO DAILY@0700 03/15/21 10/09/22 History Metoprolol Tartrate [Lopressor] 12.5 mg PO BID@0800,1700 03/15/21 10/09/22 History Midodrine [ProAmatine] 5 mg PO DAILY PRN 03/15/21 10/09/22 History Nystatin 100,000 Unit/gm Powd 1 applic TOPICAL DAILY 03/15/21 10/09/22 History [Mycostatin Powder] Pantoprazole [Protonix] 40 mg PO DAILY@0800 03/15/21 10/09/22 History diphenhydrAMINE HCL [Benadryl] 25 mg PO BID PRN 03/15/21 10/09/22 History guaiFENesin [Mucinex] 600 mg PO BID@0800,1700 03/15/21 10/09/22 History Hydrocortisone Lotion 2% 1 applic TOPICAL QID 10/09/22 10/09/22 History Liquacel 30 ml PO BID@0800,1700 10/09/22 10/09/22 History Mupirocin Calcium 2% Cream 1 applic TOPICAL TID@0600,1400,2200 10/09/22 10/09/22 History [Bactroban 2% Cream] predniSONE 10 mg PO DAILY@0800 10/09/22 10/09/22 History Budesonide [Pulmicort] 0.5 mg INHALATION RT-BID ml 10/11/22 Rx Cefdinir [Omnicef] 300 mg PO BID cap 10/11/22 Rx Ipratropium-Albuterol Nebulize 3 ml INHALATION RT-QID each 10/11/22 Rx [Duoneb 0.5 mg-3 mg/3 ml Soln] Triamcinolone 0.1% Cream [Kenalog 1 applic TOPICAL BID each 10/11/22 Rx 0.1% Cream] Allergies Allergy/AdvReac Type Severity Reaction Status Date / Time No Known Allergies Allergy Verified 10/09/22 08:37 Physical Exam Vitals: Vital Signs Temp Pulse Pulse Resp BP BP Pulse Ox 10/10/22 08:00 98.2 F 67 18 121/68 99 10/09/22 22:15 98 F 85 18 161/77 99 10/09/22 21:57 78 16 10/09/22 20:08 78 15 135/64 98 10/09/22 18:00 89 18 159/86 97 10/09/22 14:00 72 18 136/75 Intake and Output 10/09/22 10/10/22 10/10/22 22:59 06:59 14:59 Output Total 450 Balance -450 Output: Urine 450 Other: Weight 80.739 kg GENERAL DESCRIPTION: elderly male lying in bed, no distress. No tachypnea or accessory muscle of respiration use. HEENT: Shows Pallor , no scleral icterus. Oral mucous membrane is dry. NECK: Trachea central, no thyromegaly. LUNGS: Unlabored breathing. Clear to auscultation anteriorly. No wheeze or crack le. HEART: S1, S2, regular rate and rhythm. ABDOMEN: Soft, no tenderness , guarding or rigidity EXTREMITIES: No edema of feet. SKIN: erythematous rash to the left gluteal area , no open wound or any drainage NEUROLOGICAL: The patient is awake, alert, oriented x3, mood and affect normal. Results CBC & Chem 7: 10/10/22 14:08 10/10/22 14:08 Labs: Abnormal Lab Results - Last 24 Hours (Table) 10/09/22 10/09/22 Range/Units 13:00 18:38 C-Reactive Protein 3.4 H (<1.0) mg/dL TSH 0.391 L (0.465-4.680) mIU/L Ur Specific [place] 1.043 H (1.001-1.035) Urine Protein Trace H (Negative) Assessment and Plan (1) Leukocytosis Status: Acute Code(s): D72.829 - ELEVATED WHITE BLOOD CELL COUNT, UNSPECIFIED SNOMED Code(s): 341821848 Plan: 1patient with elevated white count on admission to the hospital presented with possible GI bleed as there was concern for vomiting and hematemesis with the patient currently he denies any blood in his vomit patient did have abdominal CT with evidence of esophagitis possibly reflux elated versus Aida esophagitis and also have a distention of the rectum from constipation plus minus steroid effect as the patient has been on steroids for a rash 2-we will check inflammatory markers 3-continue with Unasyn and Diflucan 4-hydrocortisone cream to the left gluteal rash area twice a day We will follow on clinical condition and cultures to further adjust medication if needed Thank you for this consultation we will follow the patient along with you Time with Patient: Greater than 30
[2022-10-11] MEDS: TRIAMCINOLONE 0.1% CREAM 80 GM TUBE TOPICAL SCH ×3 (00:10→21:21)
[2022-10-11] MEDS: HEPARIN SODIUM,PORCINE/PF 5,000 UNIT/0.5 ML SYRINGE SQ SCH ×3 (00:12→15:14)
[2022-10-11] MEDS: SODIUM CHLORIDE 0.9% 1,000 ML IV SCH ×3 (00:13→15:15)
[2022-10-11] MEDS: AMPICILLIN-SULBACTAM 3 GM in SODIUM CHLORIDE 0.9% 100 ML IVPB SCH ×2 (00:13→14:04)
[2022-10-11] MEDS: LEVOTHYROXINE 50 MCG TAB PO SCH (06:43)
[2022-10-11] MEDS: PANTOPRAZOLE 40 MG TABLET PO SCH (09:21)
[2022-10-11] MEDS: METOPROLOL TARTRATE 12.5 MG TAB PO SCH ×2 (09:21→15:14)
--- NOTE | 2022-10-11 10:22 | P.PN ---
Subjective Progress Note Date: 10/11/22 Principal diagnosis: Abdominal pain Patient is doing well same today. Denies abdominal pain. Tolerating diet. Bloating is much improved he says. Apparently he has been refusing various medications and interventions. Complaining of back itching. Yesterday's white blood cell count came hose tubing backer to normal. Objective - Vital Signs Vital signs: Vital Signs Temp 97.4 F L 10/11/22 07:50 Pulse 69 10/11/22 07:50 Resp 19 10/11/22 07:50 BP 134/77 10/11/22 07:50 Pulse Ox 98 10/11/22 07:50 FiO2 Intake & Output 10/10/22 10/11/22 10/11/22 18:59 06:59 18:59 Output Total 400 Balance -400 Output: Urine 400 Other: Voiding Method Urinal # Voids 4 2 - Exam Abdomen: Soft, nondistended, nontender - Labs CBC & Chem 7: 10/10/22 14:08 10/10/22 14:08 Labs: Abnormal Lab Results - Last 24 Hours (Table) 10/10/22 10/10/22 Range/Units 14:08 14:08 WBC 12.3 H (3.8-10.6) k/uL Hgb 9.6 L (13.0-17.5) gm/dL Hct 33.0 L (39.0-53.0) % MCV 66.8 L (80.0-100.0) fL MCH 19.5 L (25.0-35.0) pg MCHC 29.1 L (31.0-37.0) g/dL RDW 17.8 H (11.5-15.5) % Neutrophils # 9.5 H (1.3-7.7) k/uL Chloride 112 H (98-107) mmol/L BUN 8 L (9-20) mg/dL Creatinine 0.64 L (0.66-1.25) mg/dL Calcium 7.9 L (8.4-10.2) mg/dL Total Protein 5.6 L (6.3-8.2) g/dL Albumin 3.0 L (3.5-5.0) g/dL Assessment and Plan (1) Abdominal pain Narrative/Plan: Patient doing well from a surgical point of view. Continue diet as tolerated. No surgical plans at this time. We'll sign off. Please call if needed. Current Visit: Yes Status: Acute Code(s): R10.9 - UNSPECIFIED ABDOMINAL PAIN SNOMED Code(s): 27332612
[2022-10-11] MEDS: CHLORHEXIDINE GLUCONATE 15 ML CUP MUCOUS MEM SCH (10:26)
[2022-10-11] MEDS: FLUCONAZOLE IN NACL,ISO-OSM 100 MG in SALINE 1 50ML.BAG IVPB SCH (10:26)
[2022-10-11] MEDS: HYDROCORTISONE 2% TOPICAL SCH ×4 (10:27→21:31)
[2022-10-11] MEDS: polyethylene glycoL 3350 17 GM POWD.PACK PO SCH (10:27)
[2022-10-11] MEDS: NYSTATIN 100,000 UNIT/GM POWD 15 GM TOPICAL SCH (14:03)
[2022-10-11] MEDS: CEFDINIR 300 MG CAP PO SCH ×2 (15:15→21:21)
[2022-10-11] MEDS: IPRATROPIUM-ALBUTEROL 3 ML NEB INHALATION SCH ×2 (15:26→20:11)
--- NOTE | 2022-10-11 17:33 | P.PN ---
Subjective Progress Note Date: 10/11/22 Principal diagnosis: Leukocytosis Patient is a 77-year-old male with a past medical history significant for hypertension hypothyroidism reflux and a history of chronic wound and abscess to bilateral gluteal area that has been diagnosed with hydradenitis and previously completed multiple courses of antibiotic therapy patient is currently a resident of the local alf patient has been sent to the ER for evaluation of possible GI bleed apparently the patient did have an episode of vomiting and the nursing staff mention there was blood in it, patient also notic ed to have elevated white count 34,000 prompting this infection disease consultation On today's evaluation that is 10/11/2022, the patient denies having any fever or chills, the patient is breathing comfortably. Denies having any chest pain shortness of breath or cough denies any further nausea vomiting or any worsening pain to the left gluteal area Objective - Vital Signs Vital signs: Vital Signs Temp 97.4 F L 10/11/22 07:50 Pulse 69 10/11/22 07:50 Resp 19 10/11/22 07:50 BP 134/77 10/11/22 07:50 Pulse Ox 98 10/11/22 07:50 FiO2 Intake & Output 10/10/22 10/11/22 10/11/22 18:59 06:59 18:59 Output Total 400 Balance -400 Output: Urine 400 Other: Voiding Method Urinal Urinal # Voids 4 2 - Exam GENERAL DESCRIPTION: An elderly male lying in bed in no distress RESPIRATORY SYSTEM: Unlabored breathing , decreased breath sounds at bases HEART: S1 S2 regular rate and rhythm , ABDOMEN: Soft , no tenderness, left gluteal area redness has slightly decreased EXTREMITIES: No edema feet - Labs CBC & Chem 7: 10/10/22 14:08 10/10/22 14:08 Assessment and Plan (1) Leukocytosis Current Visit: Yes Status: Acute Code(s): D72.829 - ELEVATED WHITE BLOOD CELL COUNT, UNSPECIFIED SNOMED Code(s): 444162899 Plan: 1patient with elevated white count on admission to the hospital presented with possible GI bleed as there was concern for vomiting and hematemesis with the patient currently he denies any blood in his vomit patient did have abdominal CT with evidence of esophagitis possibly reflux elated versus Aida esophagitis and also have a distention of the rectum from constipation plus minus steroid effect as the patient has been on steroids for a rash 2-patient white count is down to 12,000, CRP is 3.4 Percocet is currently pending 3-patient to continue with Unasyn and Diflucan while waiting for the cultures to finalize 4-hydrocortisone cream to the left gluteal rash area twice a day Time with Patient: Less than 30
[2022-10-11] MEDS: BUDESONIDE 0.5 MG/2 ML NEBU INHALATION SCH (20:11)
[2022-10-11 20:12] VITALS: RESP 18
--- NOTE | 2022-10-11 22:09 | PN ---
PROGRESS NOTE The patient has refused IV treatments. He wants to be switched to oral medications. He has refused any blood draws at this time. Hopefully he can get back to his rehab center tomorrow. He is at 98% on 2 L, temp 97.4, pulse 69, respiratory rate 16. He has abdominal difficulties with his bowel obstruction, where he has been seen by Dr. Mcleod, was given a medicine. He has marked emphysema changes. No lung abscess. Do have infiltrates in the lung base. Possible pneumonia. He will return to follow up as needed. White count went from 34 down to 12. He has refused any more blood draws. We have to send back to the snf like he is as he refused blood today. UA is negative. TSH, cortisol level was also checked out. CRP is high due to inflammation and infection. Possibly switch him to oral antibiotics and send him back to rehab tomorrow. MMODL / IJN: [id number] /
--- NOTE | 2022-10-11 23:00 | DS ---
DISCHARGE SUMMARY DISCHARGE DIAGNOSES: Abdominal pain, chronic anemia, constipation, esophagitis, leukocytosis secondary to possible pneumonia, moderate to severe chronic obstructive pulmonary disease. MEDICATIONS: Medicines that will be needed will include, 1. DuoNeb updrafts q.i.d. 2. Pulmicort 0.5 b.i.d. 3. Triamcinolone cream topically b.i.d. 4. Omnicef 300 b.i.d. for 7 days. 5. Primatene 5 mg daily for hypotension. 6. Benadryl 25 mg b.i.d. p.r.n. for itching. 7. Eliquis 5 mg b.i.d. 8. Nystatin. 9. Mycostatin powder topically daily. 10.Synthroid 50 mcg daily. 11.Prednisone 10 mg daily. 12.Bactroban cream 2% daily cream b.i.d. topically. 13.Hydrocortisone 2% topically q.i.d. 14.Mucinex 600 b.i.d. 15.Lopressor 12.5 b.i.d. 16.Chlorhexidine gluconate/Hibiclens topically daily. 17.Vitamin D3 daily. 18.Bumex 1 mg daily. 19.Protonix 40 mg daily. 20.Liquacel 30 mL b.i.d. CONDITION: Stable. PROGNOSIS: Guarded. Ambulate as tolerated. The patient will continue with current treatments. Follow up as an outpatient. He is cleared by Surgery for fecal impaction. His leukocytosis is really high secondary to possible pneumonia and COPD. I put him on antibiotics etc., updrafts will have to be continued as mentioned above. 2 L oxygen 24 hours a day. Standard wound care like he normally gets. Hypertension medicines will have to be continued, Eliquis for atrial fibrillation. Prognosis guarded. MMODL / IJN: [id number] /
[2022-10-12] MEDS: HEPARIN SODIUM,PORCINE/PF 5,000 UNIT/0.5 ML SYRINGE SQ SCH ×2 (01:03→09:06)
[2022-10-12] MEDS: LEVOTHYROXINE 50 MCG TAB PO SCH (01:04)
[2022-10-12] MEDS: SODIUM CHLORIDE 0.9% 1,000 ML IV SCH ×2 (01:04→09:08)
[2022-10-12] MEDS: PANTOPRAZOLE 40 MG TABLET PO SCH (09:06)
[2022-10-12] MEDS: METOPROLOL TARTRATE 12.5 MG TAB PO SCH (09:06)
[2022-10-12] MEDS: FLUCONAZOLE IN NACL,ISO-OSM 100 MG in SALINE 1 50ML.BAG IVPB SCH (09:07)
[2022-10-12] MEDS: HYDROCORTISONE 2% TOPICAL SCH (09:07)
[2022-10-12] MEDS: CHLORHEXIDINE GLUCONATE 15 ML CUP MUCOUS MEM SCH (09:07)
[2022-10-12] MEDS: polyethylene glycoL 3350 17 GM POWD.PACK PO SCH (09:08)
[2022-10-12 09:20] VITALS: BP 143/72; PULSE 85; TEMP 97.8
[2022-10-12] MEDS: NYSTATIN 100,000 UNIT/GM POWD 15 GM TOPICAL SCH (09:32)
[2022-10-12] MEDS: CEFDINIR 300 MG CAP PO SCH (09:32)
[2022-10-12] MEDS: TRIAMCINOLONE 0.1% CREAM 80 GM TUBE TOPICAL SCH (09:33)
[2022-10-12] MEDS: BUDESONIDE 0.5 MG/2 ML NEBU INHALATION SCH (09:48)
[2022-10-12] MEDS: IPRATROPIUM-ALBUTEROL 3 ML NEB INHALATION SCH ×2 (09:48→12:14)
--- NOTE | 2022-10-17 19:48 | P.PN ---
Subjective Progress Note Date: 10/12/22 Principal diagnosis: Leukocytosis Patient is a 77-year-old male with a past medical history significant for hypertension hypothyroidism reflux and a history of chronic wound and abscess to bilateral gluteal area that has been diagnosed with hydradenitis and previously completed multiple courses of antibiotic therapy patient is currently a [facility] of the [facility] patient has been sent to the ER for evaluation of possible GI bleed apparently the patient did have an episode of vomiting and the nursing staff mention there was blood in it, patient also notic ed to have elevated white count 34,000 prompting this infection disease consultation On today's evaluation that is 10/12/2022, the patient is afebrile, the patient is breathing comfortably on RA, Pt denies having any chest pain shortness of breath or cough denies any further nausea vomiting or any worsening pain to the left gluteal area Objective - Vital Signs Vital signs: Vital Signs Temp 97.8 F 10/12/22 08:07 Pulse 85 10/12/22 08:07 Resp 18 10/12/22 08:07 BP 143/72 10/12/22 08:07 Pulse Ox 97 10/12/22 09:51 FiO2 Intake & Output 10/11/22 10/12/22 10/12/22 18:59 06:59 18:59 Output Total 950 Balance -950 Output: Urine 950 Other: Voiding Method Urinal Urinal Urinal # Voids 3 2 - Exam GENERAL DESCRIPTION: An elderly male lying in bed in no distress RESPIRATORY SYSTEM: Unlabored breathing , decreased breath sounds at bases HEART: S1 S2 regular rate and rhythm , ABDOMEN: Soft , no tenderness, left gluteal area redness has slightly decreased EXTREMITIES: No edema feet - Labs CBC & Chem 7: 10/10/22 14:08 10/10/22 14:08 Assessment and Plan (1) Leukocytosis Status: Acute Code(s): D72.829 - ELEVATED WHITE BLOOD CELL COUNT, UNSPECIFIED SNOMED Code(s): 110644447 Plan: 1patient with elevated white count on admission to the hospital presented with possible GI bleed as there was concern for vomiting and hematemesis with the patient currently he denies any blood in his vomit patient did have abdominal CT with evidence of esophagitis possibly reflux elated versus Aida esophagitis and also have a distention of the rectum from constipation plus minus steroid effect as the patient has been on steroids for a rash 2-patient white count is down to 12,000 yesterday no cbc was done today, CRP is 3.4 Procalcitonin is currently pending 3-hydrocortisone cream to the left gluteal rash area twice a day 4-patient to continue with Unasyn and Diflucan while waiting for the cultures to finalize Time with Patient: Less than 30
== END 2022-10-12 12:31 | DRG 368 ==
LOC: EC 23:37 → 4SSUR 10-09 04:10
PROVIDERS: ADMIT Family Medicine; ATTEND Family Medicine
DX: K21.01 Gastro-esophageal reflux disease with esophagitis, with bleeding (principal); J18.9 Pneumonia, unspecified organism; B37.81 Candidal esophagitis; M19.90 Unspecified osteoarthritis, unspecified site; J43.9 Emphysema, unspecified; K59.09 Other constipation; T38.0X5A Adverse effect of glucocorticoids and synthetic analogues, initial encounter; I48.91 Unspecified atrial fibrillation; Z53.29 Procedure and treatment not carried out because of patient's decision for other reasons; L73.2 Hidradenitis suppurativa; R21 Rash and other nonspecific skin eruption; I10 Essential (primary) hypertension; E03.9 Hypothyroidism, unspecified; D72.829 Elevated white blood cell count, unspecified; D64.9 Anemia, unspecified; Z99.81 Dependence on supplemental oxygen; Z87.891 Personal history of nicotine dependence; Z79.899 Other long term (current) drug therapy; Z79.890 Hormone replacement therapy; Z79.01 Long term (current) use of anticoagulants
CPT/HCPCS: 36415; 71045; 71250; 74177; 80053; 81003; 82533; 83605; 83690; 83735; 83880; 84100; 84439; 84443; 84484; 85025; 85610; 85730; 86140; 93005; 94640; 94760; 96361; 96365; 96366; 96367; 96375; 99285